=== PATIENT | male | born 1945 | race Caucasian/White ===

== ENCOUNTER 2016-05-26 14:02 | Emergency (ER) | payer MEDICARE, BC ==
[2016-05-26 15:01] VITALS: BP 94/64
[2016-05-26] MEDS ORDERED: Doxycycline (NF) 100 MG TAB PO ONE (15:52)
[2016-05-26] MEDS ORDERED: Acetaminophen TAB* 325 MG PO ONE (15:53)
[2016-05-26] MEDS ORDERED: DOXYcycline CAP(*) 100 MG ONE (15:59)
--- NOTE | 2016-05-26 16:34 | RAD ---
INDICATION: Right hand injury COMPARISON: None TECHNIQUE: AP, lateral, and oblique views were obtained. FINDINGS: There is no acute fracture. There is dorsal dislocation at the DIP joint of the fifth digit. There is interphalangeal joint space narrowing and there is moderate third MCP joint space narrowing consistent with osteoarthritis. IMPRESSION: DISLOCATION AT THE DIP JOINT OF THE FIFTH DIGIT. OSTEOARTHRITIS.
--- NOTE | 2016-05-26 16:35 | RAD ---
INDICATION: Dislocation at the DIP joint of the fifth digit COMPARISON: Right hand same date TECHNIQUE: AP, lateral, and oblique views were obtained. FINDINGS: There is dislocation at the DIP joint of the fifth digit. The distal falx is displaced dorsally. No underlying fracture is seen. There is soft tissue swelling.. IMPRESSION: DISLOCATION AT THE DIP JOINT OF THE RIGHT FIFTH DIGIT
--- NOTE | 2016-05-26 16:36 | RAD ---
INDICATION: Right knee injury. TECHNIQUE: 4 views of the right knee were obtained. FINDINGS: The bones are in normal alignment. No joint effusion or fracture is seen. Joint spaces appear maintained. IMPRESSION: NO EVIDENCE FOR FRACTURE.
--- NOTE | 2016-05-26 16:37 | RAD ---
INDICATION: Right shoulder injury COMPARISON: Right shoulder December 17, 2015 TECHNIQUE: Routine frontal and Y views were obtained. FINDINGS: There is no acute fracture or dislocation. There is moderate AC joint osteoarthritis. IMPRESSION: NO ACUTE BONY FINDINGS. AC JOINT OSTEOARTHRITIS
[2016-05-26] MEDS ORDERED: Lidocaine 2% PF * 5 ML VIAL ONE (16:45)
[2016-05-26] MEDS ORDERED: DOXYcycline CAP(*) 100 MG PO ONE (17:03)
--- NOTE | 2016-05-26 18:17 | RAD ---
Indication: Post reduction RIGHT fifth distal interphalangeal joint dislocation. Comparison: 1614 hours exam of the same date Technique: AP, lateral, and oblique views RIGHT fifth finger REPORT AND IMPRESSION: Restored anatomic alignment at the distal interphalangeal joint. No fracture evident. Soft tissue swelling most prominent distally.
--- NOTE | 2016-05-26 21:32 | UC ---
Bryon Patel Janilya, scribed for Siomara Bryant MD on 05/26/16 at 1536 . General HPI - HPI Summary HPI Summary: A 70 y/o male came in to [facility] presenting w/ a sudden onset of trauma that happened today approx 1400. Pt reports he stepped down the curb, slipped, and fell down on the right side of his body. Pt states he hurt his right shoulder, right arm, right hip, and right knee. In addition, he has a laceration on 5th finger of his right hand. Pt denies blacking out / denies LOC. Did not hit head. No abd c/os. No back pain. Denies hip pain No b/b issues. No vis / aud c/o's Denies new neck pain (hx arthritis). No new p/d/w. Does have a hx of periph neuropathy. Pt is able to ambulate now. PMHx neuropathy - legs and feet for years. Tetanus booster recently (less than 5 years). Pt is on xarelto for afib. - History of Current Complaint Chief Complaint: UCTrauma Stated Complaint: FELL-RT HAND KNEE PAIN Time Seen by Provider: 05/26/16 14:59 Hx Obtained From: Patient Onset/Duration: Sudden Onset, Lasting Hours, Still Present Timing: Constant Onset Severity: Moderate Current Severity: Moderate - Allergy/Home Medications Allergies/Adverse Reactions: Allergies Allergy/AdvReac Type Severity Reaction Status Date / Time Penicillins Allergy Unknown Unknown Verified 05/08/16 10:38 Reaction Details Sulfa Antibiotics Allergy Unknown Verified 05/08/16 10:38 Reaction Details bee stings Allergy Unknown Unknown Uncoded 05/08/16 10:38 Reaction Details PMH/Surg Hx/FS Hx/Imm Hx Previously Healthy: No - see hpi. Hx chronic VSU RLE medial calf approx 2 yrs ago. Occas dizzy. Endocrine History Of: Denies: Diabetes, Thyroid Disease Cardiovascular History Of: Reports: Cardiac Disorders - a-fib, Hypertension, Atrial Fibrillation Denies: Pacemaker/ICD Respiratory History Of: Reports: Asthma Denies: COPD GI/ History Of: Denies: Ulcer Psychological History Of: Reports: Depression - Surgical History Surgical History: Yes Surgery Procedure, Year, and Place: At age 14 - a piece of steel went into his eye and split his iris - has split vision in that eye- surgury to remove piece of metal from the eye.- 05/09/2007 ORBIT XRAYS COMPLETED AND CLEARED FOR MRI BY DR LEVIN. hernia repair many years ago - Family History Known Family History: Positive: Other - DM - mother and sister - Social History Alcohol Use: None Substance Use Type: None Smoking Status (MU): Former Smoker Type: Cigarettes Amount Used/How Often: Quit 2001 Length of Time of Smoking/Using Tobacco: 1/2 PPD for 20+ years Have You Smoked in the Last Year: No Review of Systems Constitutional: Negative Skin: Bruising - right shoulder, arm, elbow, hand, hip, and knee, Other - deep cut on 5th finger of right hand Eyes: Negative ENT: Negative Respiratory: Negative Cardiovascular: Negative Gastrointestinal: Negative Genitourinary: Negative Motor: Other - see hpi Neurovascular: Other - neuropathy - legs and feet Musculoskeletal: Arthralgia, Decreased ROM, Myalgia Neurological: Negative Psychological: Negative All Other Systems Reviewed And Are Negative: Yes Physical Exam Triage Information Reviewed: Yes Appearance: Well-Nourished - sitting up. conversing easily and appropriately. Able to ambulate, slowly. Vital Signs: Initial Vital Signs Temp 98.1 F 05/26/16 14:53 Pulse 74 05/26/16 14:53 Resp 18 05/26/16 14:53 BP 94/64 05/26/16 14:53 Pulse Ox 97 05/26/16 14:53 Vital Signs Reviewed: Yes Eye Exam: Normal ENT Exam: Normal Neck exam: Normal - no adenopathy appreciated supple for age. Neck: Positive: Supple - for age. + arthritic appearance. Respiratory Exam: Normal - no dyspnea, no tachypnea, normal respiratory rate Respiratory: Positive: Chest non-tender, Lungs clear, Normal breath sounds, No respiratory distress, No accessory muscle use Cardiovascular Exam: Other - irreg rhythm. Rate ok. correlates with left radial pulse. Cardiovascular: Positive: No Murmur, Pulses Normal, Brisk Capillary Refill Abdominal Exam: Normal Abdomen Description: Positive: Nontender, No Organomegaly, Soft Bowel Sounds: Positive: Present Musculoskeletal Exam: Other - Moves all 4 ext's including RUE. + right lat shoulder general discomfort, but FROM. Straightens elbow ok. R/u 2+ equal. Moves all 5 digits, but + def distal 5th dig. R knee + abrasion ant pat. Mild crepitus. Gait slow steady. Neurological Exam: Other - CN 2-12 intact, no c/o smell d/o. Moves all 4 ext ' s. See Gisell re details. BLE dec sens gross LT, c/w report chronic neuropathy. Psychological Exam: Normal - conversing easily and appropriately Skin Exam: Other - R ant finger pad # 5th dig lac. Full thickness. No deep exposed tendon or bone. CR distal < 2sec. + LT sens. Lac has some discoloration, c/w poor pefusion. As such, this was not suture. D/w pt. In order to preserve healing, lac dressed with surgicel will heal via 2ary intention. Diagnostics - Radiology Finger Xray Xray Interpretation: No Acute Changes Radiology Interpretation Completed By: Radiologist - IMPRESSION: DISLOCATION AT THE DIP JOINT OF THE RIGHT FIFTH DIGIT Hand Xray Xray Interpretation: No Acute Changes Radiology Interpretation Completed By: Radiologist - IMPRESSION: DISLOCATION AT THE DIP JOINT OF THE FIFTH DIGIT. OSTEOARTHRITIS. Knee Xray Xray Interpretation: No Acute Changes Radiology Interpretation Completed By: Radiologist - IMPRESSION: No evidence for fracture. Shoulder Xray Xray Interpretation: No Acute Changes Radiology Interpretation Completed By: Radiologist - IMPRESSION: NO ACUTE BONY FINDINGS. AC JOINT OSTEOARTHRITIS Course/Dx - Course Course Of Treatment: Considered diff Dx's below. Reviewed Xrays in meditech and w/ patient. xrays R shoulder, R knee, R hand, R 5th finger. Particularly noteworthy R 5th finger DIP dislocation. Dig block 2% Lido no epi, 1cc. Prem joint reduction w/o difficulty. Post reduction good alignment. Sling for shoulder as needed for comfort. R 5th finger volar pad lac - + edema and + dark discoloration at med margin of lac, concerning for possible dehiscence with poor perfusion. Also the swelling is to the degree that approximation will pull too much. D/w pt, he expresses understanding. All wounds cleansed and irrigated by RN. Surgicel applied, healing via secondary intention will be employed. Reviewed wound care instructions, avoidance of astringents. Keep dressing on until Sunday. Finger splint applied. After pt's departure, I spoke with Dr. Singleton via telephone re orthopedic f/u. During the course of [facility]] stay, Mr. Newell's R dorsal hand at approx distal 3rd MC developed swelling c/w hematoma approx 2cm. Ice, elevation encouraged. He will seek medical attention if worse / pain etc. Mr. Newell was given the opportunity to ask several insightful questions, to which I answered to the best of my ability. See avs instructions. Addm - per pt, tet utd. - Differential Dx - Multi-Symptom Provider Diagnoses: R 5th finger dislocation. Multiple contusions. R shoulder sprain. R knee contusion. R 5th finger lac (no suture) Discharge - Discharge Plan Condition: Stable Disposition: HOME Prescriptions: DOXYcycline CAP(*) [DOXYcycline 100MG CAP(*)] 100 mg PO BID #14 cap Patient Education Materials: Contusion in Adults (ED), Shoulder Sprain (ED), Finger Laceration (ED), Finger Dislocation (ED) Referrals: Maggie Willis MD [Primary Care Provider] - Additional Instructions: Follow up with your primary care physician, Dr. Willis, next week. Follow up with your orthopedic surgeon, Dr. Peter, early next week. Follow up here or with one of the above doctors on Sunday for dressing change and wound check and general checkover. Seek medical attention sooner for worse or new problems in the meantime. Ok to take acetaminophen as per packaging instructions as needed for pain. Elevate your hand as much as possible. Sling as needed for comfort. The documentation as recorded by the Bryon owen Janilya accurately reflects the service I personally performed and the decisions made by me, Siomara Bryant MD.
== END 2016-05-26 18:20 | disposition home or self-care (01) ==
LOC: UCEAST 14:02
DX: S43.401A Unspecified sprain of right shoulder joint, initial encounter (principal); S80.01XA Contusion of right knee, initial encounter; S40.011A Contusion of right shoulder, initial encounter; S50.01XA Contusion of right elbow, initial encounter; S60.221A Contusion of right hand, initial encounter; S70.01XA Contusion of right hip, initial encounter; S61.216A Laceration without foreign body of right little finger without damage to nail, initial encounter; S63.296A Dislocation of distal interphalangeal joint of right little finger, initial encounter; W17.89XA Other fall from one level to another, initial encounter; Y93.01 Activity, walking, marching and hiking; Y92.89 Other specified places as the place of occurrence of the external cause; Z88.0 Allergy status to penicillin; Z88.2 Allergy status to sulfonamides; Z87.891 Personal history of nicotine dependence
CPT/HCPCS: 26775; 73140; 99214; A9270-GY; G0463

== ENCOUNTER 2016-05-29 15:19 | Emergency (ER) | payer MEDICARE, BC ==
[2016-05-29 15:29] VITALS: BP 156/92
--- NOTE | 2016-05-29 16:08 | UC ---
HPI Wound/Suture Re-check - HPI Summary HPI Summary: Seen in UC 05/26/16 after fall from curb onto R side of body. Multiple contusions and strains, had DIP dislocation at R 5th finger, had R hand hematoma with significant swelling and bruising. Concerned about the amount of swelling in his hand, also hasn't changed bandages per Dr. Bryant's instructions. Saw Dr. Willis, but Dr. Willis sent him here because she was unsure how to deal with the surgicel. Denies streaking, fever, or new pain. - History Of Current Complaint Chief Complaint: UCWounds Stated Complaint: WOUND RECHECK Hx Obtained From: Patient Onset/Duration: Sudden Onset Severity: Moderate - Allergies/Home Medications Allergies/Adverse Reactions: Allergies Allergy/AdvReac Type Severity Reaction Status Date / Time Penicillins Allergy Unknown Unknown Verified 05/29/16 15:29 Reaction Details Sulfa Antibiotics Allergy Unknown Verified 05/29/16 15:29 Reaction Details bee stings Allergy Unknown Unknown Uncoded 05/08/16 10:38 Reaction Details Home Medications: Home Medications Acetaminophen 500 mg PO PRN 05/29/16 [History] Manganese Gluconate (Bulk) [Manganese Gluconate] 05/29/16 [History] Multiple Vitamins W/ Minerals [Multivitamin Adults] 1 tab PO DAILY 05/29/16 [ History Confirmed 05/29/16] PMH/Surg Hx/FS Hx/Imm Hx Endocrine History Of: Denies: Diabetes, Thyroid Disease Cardiovascular History Of: Reports: Cardiac Disorders - a-fib, Hypertension, Atrial Fibrillation Denies: Pacemaker/ICD Respiratory History Of: Reports: Asthma Denies: COPD GI/ History Of: Denies: Ulcer Psychological History Of: Reports: Depression - Surgical History Surgical History: Yes Surgery Procedure, Year, and Place: At age 14 - a piece of steel went into his eye and split his iris - has split vision in that eye- surgury to remove piece of metal from the eye.- 05/09/2007 ORBIT XRAYS COMPLETED AND CLEARED FOR MRI BY DR LEVIN. hernia repair many years ago - Family History Known Family History: Positive: Other - DM - mother and sister - Social History Alcohol Use: Rare Substance Use Type: None Smoking Status (MU): Former Smoker Type: Cigarettes Amount Used/How Often: Quit 2001 Length of Time of Smoking/Using Tobacco: 1/2 PPD for 20+ years Have You Smoked in the Last Year: No Review of Systems Constitutional: Negative Skin: Bruising, Other - abrasions and skin avulsions Eyes: Negative ENT: Negative Respiratory: Negative Cardiovascular: Negative Gastrointestinal: Negative Genitourinary: Negative Motor: Negative Neurovascular: Negative Musculoskeletal: Decreased ROM - R hand Neurological: Negative Psychological: Negative All Other Systems Reviewed And Are Negative: Yes Physical Exam Triage Information Reviewed: Yes Appearance: Obese Vital Signs: Initial Vital Signs Temp 97.7 F 05/29/16 15:25 Pulse 63 05/29/16 15:25 Resp 18 05/29/16 15:25 BP 156/92 05/29/16 15:25 Pulse Ox 99 05/29/16 15:25 Vital Signs Reviewed: Yes Eye Exam: Other - L eye post-surgical changes Eyes: Positive: Conjunctiva Clear ENT Exam: Normal ENT: Positive: Normal ENT inspection, Hearing grossly normal, Pharynx normal Dental Exam: Normal Neck exam: Normal Neck: Positive: Supple, Nontender, No Lymphadenopathy Respiratory Exam: Normal Respiratory: Positive: Chest non-tender, Lungs clear, Normal breath sounds, No respiratory distress, No accessory muscle use Cardiovascular Exam: Normal Cardiovascular: Positive: RRR, No Murmur Musculoskeletal: Positive: ROM Limited @ - R hand, Edema @ - R hand with marked swelling and bruising Neurological Exam: Normal Psychological Exam: Normal Skin Exam: Other - skin avulsions to R 5th with surgicel intact. After soaking off, scabs intact, no erythema Course/Dx - Differential Dx - Laceration/Wound Provider Diagnoses: R hand healing abrasions. R hand healing skin avulsions. R hand hematoma Discharge - Discharge Plan Condition: Stable Disposition: HOME Patient Education Materials: Skin Avulsion (ED), Hematoma (ED) Referrals: Maggie Willis MD [Primary Care Provider] - If Needed Additional Instructions: As we discussed, the swelling and discoloration in your hand is expected from the contusion you experienced. If you develop redness, foul drainage, or streaking up the arm please come back right away. You can shower and wash your hands as normal. Make sure you change your bandages at least once daily, and if they ever get wet or soiled.
== END 2016-05-29 16:25 | disposition home or self-care (01) ==
LOC: UCEAST 15:19
DX: S60.511D Abrasion of right hand, subsequent encounter (principal); S60.221D Contusion of right hand, subsequent encounter; S61.411D Laceration without foreign body of right hand, subsequent encounter; W17.89XD Other fall from one level to another, subsequent encounter; Z88.0 Allergy status to penicillin; Z88.2 Allergy status to sulfonamides; Z87.891 Personal history of nicotine dependence
CPT/HCPCS: 99212; G0463

== ENCOUNTER 2017-10-12 11:05 | Inpatient (IN) | payer MEDICARE, BC ==
[2017-10-12] MEDS ORDERED: Morphine INJ* 4 MG/ML 1 ML CARPUJECT IV ONE ×3 (11:18→12:59)
[2017-10-12] MEDS ORDERED: NS 0.9% 1000 ML* 1,000 ML IV ONE (11:18)
[2017-10-12] MEDS ORDERED: Morphine VIAL* 4 MG/ML VIAL (1 ml vial) IV ONE ×3 (11:29→14:00)
[2017-10-12] MEDS ORDERED: Ondansetron ODT TAB* 4 MG ONE ×2 (11:37→16:39)
[2017-10-12] MEDS: Ondansetron ODT TAB* 4 MG SL PRN ×2 (11:42→16:40)
[2017-10-12 11:51] LABS: ABS Basophils 0.1 10^3/ul (0-0.2); ABS Eosinophils 0 10^3/ul (0-0.6); ABS Lymphocytes 1.2 10^3/ul (1.0-4.8); ABS Monocytes 0.6 10^3/ul (0-0.8); ABS Neutrophils 9.1 10^3/ul (1.5-7.7); ABS Nucleated RBC 0 10^3/ul; Eosinophil % 0.3 % (0-6); Hematocrit 47 % (42-52); Hemoglobin 16.3 g/dl (14.0-18.0); Lymphocyte % 10.7 % (25-47); Mean Corpuscular HGB Conc 34 g/dl (31-36); Mean Corpuscular Hemoglobin 34 pg (27-31); Mean Corpuscular Volume 99 fL (80-94); Mean Platelet Volume 8.2 um3 (7.4-10.4); Nucleated Red Blood Cells % 0.1; Platelet Count 267 10^3/ul (150-450); Red Blood Count 4.81 10^6/ul (4.0-5.4); Red Cell Distribution Width 12 % (10.5-15); White Blood Count 11.1 10^3/ul (3.5-10.8)
[2017-10-12 12:09] LABS: EGFR Non-African American 60.3 (>60)
[2017-10-12] MEDS ORDERED: Iohexol 300* (CONTRAST) 10 ML SDV IV ONE (12:30)
--- OUTSIDE RECORDS SUMMARY | 2017-10-12 12:32 | XMS REPORT ---
:1945 External Reference #:[id number] Author Organization [email or web address] Address [address] [place] [address] Phone [phone] Care Team Providers Name Role Phone Maggie Willis M.D. Primary Care Physician Unavailable Payers Type Date Identification Numbers Payment Provider Subscriber Medicare Primary Policy Number: [id number] Medicare - NGS Nabil Newell PayID: [id number] [place] [address] Medigap Part B Effective: Policy Number: BS [place] [employer] Nabil J Luis Newell 1999 [id number] PayID: [id number] [address] [address] [place] [address] Problems Date Description Provider Status Onset: Atrial fibrillation Active Onset: Chronic obstructive lung disease Active Onset: Essential hypertension Active Onset: Hereditary hemochromatosis Active Onset: Sleep apnea Active Onset: Gout Active Onset: Seasonal allergy Active Onset: 10/01/2014 Aphakia Jung Kaiser M.D. Active Onset: 10/01/2014 Exotropia Jung Kaiser M.D. Active Onset: 10/01/2014 Hypertropia Jung Kaiser M.D. Active Onset: 10/01/2014 Migraine with aura Jung Kaiser M.D. Active Onset: Large prostate Active Onset: 10/01/2015 Nuclear senile cataract Yasmine Patrick O.D. Active Onset: 10/01/2015 Monocular exotropia Yasmine Patrick O.D. 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 Social History Type Date Description Comments Marital Status Legal Status: Occupation [employer] Work Status Retired ETOH Use Denies alcohol use Smoking Patient is a former smoker Recreational Drug Use Denies Drug Use Daily Caffeine coffee 1 cup weekly Allergies, Adverse Reactions, Alerts Date Description Reaction Status Severity Comments 10/01/2014 Penicillin does not remember active 10/01/2014 Sulfa Antibiotics Nausea and Vomiting active Medications Medication Date Status Form Strength Qnty SIG Indications Ordering Provider Losartan Active Tablets 25mg 1 by Unknown Potassium 000 mouth every day Allopurinol Active Tablets 100mg 1 by Unknown 000 mouth every day Ranitidine HCL Active Capsules 300mg 1 by Unknown 000 mouth every day Vitamin B-12 Active Tablets 1000mcg 1 by Unknown 000 mouth every day Colchicine Active Tablets 0.6mg 1 by Unknown 000 mouth every day as needed Pravastatin Active Tablets 20mg 1 by Unknown Sodium 000 mouth every evening Metoprolol Active Tablets ER 50mg 2 by Unknown Succinate ER 000 24HR mouth every morning then 1 tab po qpm Alvesco Active Aerosol 160mcg/Act 2 puffs Unknown 000 every day Xopenex HFA Active Aerosol 45mcg/Act 2 puffs Unknown 000 four times a day as needed Xarelto Active Tablets 20mg 1 by Unknown 000 mouth every day Loperamide HCL 0 Active Capsules 2mg Unknown 000 Tamsulosin HCL Active Capsules 0.4mg Unknown 000 Multivitamin Active Tablets Unknown Adult 000 Magnesium Active Tablets 400mg tid Unknown 000 Results Description No Information Procedures Date CPT Code Description Status 10/04/2016 32068 Determination Of Refractive State Completed 10/04/2016 57005 Est Patient Comprehensive Exam Completed 10/01/2015 90614 Est Patient Comprehensive Exam Completed 10/01/2014 30078 Determination Of Refractive State Completed 10/01/2014 29929 Est Patient Comprehensive Exam Completed 09/30/2013 88813 Est Patient Comprehensive Exam Completed 09/25/2012 41745 Determination Of Refractive State Completed 09/25/2012 12514 Est Patient Comprehensive Exam Completed 09/12/2011 71907 Est Patient Comprehensive Exam Completed 09/12/2011 82219 Determination Of Refractive State Completed 09/06/2010 79759 Determination Of Refractive State Completed 09/06/2010 51969 Est Patient Comprehensive Exam Completed 08/31/2009 92280 Determination Of Refractive State Completed 08/31/2009 82936 Est Patient Comprehensive Exam Completed 08/27/2008 00554 Est Patient Comprehensive Exam Completed 08/15/2007 75939 Determination Of Refractive State Completed 08/15/2007 53242 Est Patient Comprehensive Exam Completed 09/04/2006 21333 Determination Of Refractive State Completed 09/04/2006 54905 New Patient Comprehensive Exam Completed Plan of Care 10/10/2017 - Yasmine Patrick O.D.H25.811 Combined forms of age-related cataract, right eyeComments:Smoking can increase the risk of developing or worsening any eye related disease, as well as affect your overall health. If you are a smoker, we strongly recommend that you quit.If you are not a smoker, we strongly recommend that you do not start. You have been diagnosed with a cataract in the righteye. If you are happy with your vision as it is, we will see you at your next scheduled appointment.If you feel like your vision is getting worse before your scheduled appointment, please call Marah Dinh at [phone].Follow up:1 Year Follow Up You can expect to have your eyes dilated at your next visit. If Dr. Patrick orders any additional testing, it may require extra time. We recommend that you bring sunglasses, as dilation drops often make you light sensitive until they wear off. We always recommend you bring someone to drive you home if you are uncomfortable driving with your eyes dilated. If you have any questions before your next visit, feel free to call our office at .H27.02 Aphakia, left eyeH50.112 Monocular exotropia, left eye
--- NOTE | 2017-10-12 13:22 | RAD ---
CLINICAL HISTORY: LOWER ABD PAIN/TENDERNESS COMPARISON: None TECHNIQUE: Multiple contiguous axial CT scans were obtained of the abdomen and pelvis after the administration of intravenous contrast. Coronal and sagittal multiplanar reformations are submitted for review. Oral contrast was administered. Delayed images were obtained through the abdomen. FINDINGS: LUNG BASES: The lung bases are clear. LIVER: The liver is diffusely low in attenuation compared to the spleen. There are no focal hepatic parenchymal masses. BILE DUCTS: There is no intrahepatic or extrahepatic biliary dilatation. GALLBLADDER: The gallbladder is normal, without pericholecystic inflammatory change. PANCREAS: The pancreas is normal, without mass or ductal dilatation. SPLEEN: Normal in size and appearance. UPPER GI TRACT: Evaluation of the gastrointestinal tract is limited by incomplete gastric distention. The upper GI tract is unremarkable. SMALL BOWEL AND MESENTERY: The small bowel is normal in contour, course, and caliber. There is no obstruction or dilatation. COLON: There are multiple diverticula of the sigmoid colon. There is no pericolonic inflammatory change. ADRENALS: Normal bilaterally. KIDNEYS: There is a 0.3 cm nonobstructing calyceal stone of the lower pole of left kidney. There is a 0.3 cm calculus of the distal third of the left ureter. There is mild pelvocaliectasis and hydroureter. There is stranding of the perinephric fat. BLADDER: The bladder is smooth in contour. PELVIC ORGANS: The prostate is diffusely enlarged. The seminal vesicles are symmetric. AORTA: There is calcific atherosclerotic disease of the abdominal aorta and its branches, without aneurysmal dilatation IVC: Unremarkable LYMPH NODES: There is no lymphadenopathy by size criteria. ABDOMINAL WALL: There is no evidence for abdominal wall hernia. BONES AND SOFT TISSUES: There is a chronic appearing compression deformity of T10. Mild degenerative changes are noted. OTHER: None IMPRESSION: 1. LEFT NEPHROLITHIASIS INCLUDING A 0.3 CM DISTAL LEFT URETERAL STONE WITH MILD HYDRONEPHROSIS. 2. FATTY INFILTRATION OF THE LIVER. 3. ATHEROSCLEROSIS. 4. DIVERTICULOSIS. 5. ENLARGED PROSTATE
[2017-10-12] MEDS ORDERED: Ketorolac INJ* 30 MG/ML 1 ML VIAL IV PUSH ONE (13:57)
[2017-10-12] MEDS ORDERED: Metoclopramide IV* 5 MG/ML 2 ML VIAL IV SLOW PU ONE (14:09)
[2017-10-12] MEDS ORDERED: oxyCODONE/Acetamin 5/325 MG* TAB PO ONE (14:52)
[2017-10-12] MEDS ORDERED: Aspirin 81 mg CHEW TAB* 81 MG TAB.CHEW PO ONE (17:55)
[2017-10-12] MEDS ORDERED: Nitroglycerin TAB 0.4 MG* 0.4 MG TAB SL ONE (17:56)
[2017-10-12] MEDS: NS 0.9% 1000 ML* 2,000 ML IV ONE ×2 (18:07→18:32)
[2017-10-12] MEDS ORDERED: Diltiazem IV* 5 MG/ML 5 ML VIAL (for loading dose/IV Push) (25 MG) IV SLOW PU ONE (18:17)
--- NOTE | 2017-10-12 18:54 | ED ---
García Patel Stephanie, scribed for Barber Villalpando MD on 10/12/17 at 1131 . Abdominal Pain/Male - HPI Summary HPI Summary: The pt is a 72 y/o M BIBA to the ED with c/o abd pain that began at 08:00 this morning. Symptoms diarrhea (yesterday). His abd pain is located in the LLQ and radiated into the flank circumferentially. He denies N/V and blood in the stool. He denies hx of kidney stones. He reports his last time eating was last night. - History of Current Complaint Chief Complaint: EDAbdPain Stated Complaint: ABD PAIN Time Seen by Provider: 10/12/17 11:12 Hx Obtained From: Patient Onset/Duration: Sudden Onset, Still Present Timing: Constant Severity Currently: Severe Pain Intensity: 10 Pain Scale Used: 0-10 Numeric Location: Discrete At: LLQ Radiates: Yes Radiates to: Flank - L Alleviating Factor(s): Position Associated Signs And Symptoms: Positive: Diarrhea. Negative: Blood in Stool, Nausea, Vomiting - Allergies/Home Medications Allergies/Adverse Reactions: Allergies Allergy/AdvReac Type Severity Reaction Status Date / Time bee venom protein (honey bee) Allergy Unknown Unknown Verified 10/12/17 12:30 Reaction Details Penicillins Allergy Unknown See Comment Verified 10/12/17 12:30 Sulfa (Sulfonamide Allergy Unknown See Comment Verified 10/12/17 12:30 Antibiotics) Home Medications: Home Medications Ciclesonide 160 MG MDI (NF) [Alvesco 160 MDI (NF)] 1 puff INH BID 10/12/17 [ History Confirmed 10/12/17] Cyanocobalamin TAB* [Vitamin B12 TAB*] 1,000 mcg PO DAILY 10/12/17 [History Confirmed 10/12/17] Loperamide CAP* [Imodium CAP*] 2 mg PO DAILY 10/12/17 [History Confirmed ] Losartan TAB* [Cozaar TAB*] 25 mg PO DAILY 10/12/17 [History Confirmed 10/12/17] Manganese Gluconate 400 mg PO QPM 10/12/17 [History Confirmed 10/12/17] Manganese Gluconate 800 mg PO QAM 10/12/17 [History Confirmed 10/12/17] Metoprolol Tartrate TAB* [Lopressor TAB*] 50 mg PO QPM 10/12/17 [History Confirmed 10/12/17] Metoprolol Tartrate TAB* [Lopressor TAB*] 100 mg PO QAM 10/12/17 [History Confirmed 10/12/17] Multivitamins/Minerals TAB* [Theragran/minerals TAB*] 1 tab PO DAILY 10/12/17 [ History Confirmed 10/12/17] Pravastatin (NF) [Pravachol (NF)] 20 mg PO QPM 10/12/17 [History Confirmed 10/12] Ranitidine TAB (NF) [Zantac TAB (NF)] 300 mg PO DAILY 10/12/17 [History Confirmed 10/12/17] Rivaroxaban TAB(*) [Xarelto 10 mg (*)] 20 mg PO DAILY 10/12/17 [History Confirmed 10/12/17] Tamsulosin CAP* [Flomax CAP*] 0.4 mg PO DAILY 10/12/17 [History Confirmed ] PMH/Surg Hx/FS Hx/Imm Hx Endocrine/Hematology History: Reports: Hx Blood Disorders - hemochromatosis Denies: Hx Diabetes, Hx Thyroid Disease Cardiovascular History: Reports: Hx Hypercholesterolemia, Hx Hypertension Denies: Hx Pacemaker/ICD Respiratory History: Reports: Hx Asthma, Hx Seasonal Allergies, Hx Sleep Apnea - severe BRIT; current CPAP user Denies: Hx Chronic Obstructive Pulmonary Disease (COPD) GI History: Reports: Hx Gastroesophageal Reflux Disease Denies: Hx Ulcer Sensory History: Denies: Hx Legally Blind, Hx Hearing Aid EENT History: Denies: Hx Deafness Psychiatric History: Reports: Hx Depression Denies: Hx Panic Disorder - Surgical History Surgery Procedure, Year, and Place: At age 14 - a piece of steel went into his eye and split his iris - has split vision in that eye- surgury to remove piece of metal from the eye.- 05/09/2007 ORBIT XRAYS COMPLETED AND CLEARED FOR MRI BY DR LEVIN. hernia repair many years ago Infectious Disease History: No Infectious Disease History: Denies: Hx Clostridium Difficile, Hx Hepatitis, Hx Human Immunodeficiency Virus (HIV), Hx of Known/Suspected MRSA, Hx Shingles, Hx Tuberculosis, Hx Known/ Suspected VRE, Hx Known/Suspected VRSA, History Other Infectious Disease, Traveled Outside the [place] in Last 30 Days - Family History Known Family History: Positive: Other - DM - mother and sister - Social History Occupation: Retired Lives: Dormitory/Roommates Alcohol Use: Rare Hx Substance Use: No Substance Use Type: Reports: None Hx Tobacco Use: No Smoking Status (MU): Former Smoker Type: Cigarettes Amount Used/How Often: Quit 2001 Length of Time of Smoking/Using Tobacco: 1/2 PPD for 20+ years Have You Smoked in the Last Year: No Review of Systems Negative: Fever, Chills Negative: Erythema Negative: Sore Throat Negative: Chest Pain Negative: Shortness Of Breath, Cough Gastrointestinal: Negative - blood in stool Positive: Abdominal Pain, Diarrhea. Negative: Vomiting, Nausea Positive: flank pain. Negative: dysuria, hematuria Negative: Myalgia, Edema Negative: Rash Neurological: Negative - dizziness All Other Systems Reviewed And Are Negative: Yes Physical Exam - Summary Physical Exam Summary: Constitutional: Well-developed, Well-nourished, Alert. (-) Distressed Skin: Warm, Dry HENT: Normocephalic; Atraumatic Eyes: Conjunctiva normal Neck: Musculoskeletal ROM normal neck. (-) JVD, (-) Stridor, (-) Tracheal deviation Cardio: Rhythm regular, rate normal, Heart sounds normal; Intact distal pulses; The pedal pulses are 2+ and symmetric. Radial pulses are 2+ and symmetric. (-) Murmur Pulmonary/Chest wall: Effort normal. (-) Respiratory distress, (-) Wheezes, (-) Rales Abd: Soft, (-) Distension, diffuse abd tenderness worse in lower abdomen, guarding and rebound tenderness Musculoskeletal: (-) Edema Lymph: (-) Cervical adenopathy Neuro: Alert, Oriented x3 Psych: Mood and affect Normal Triage Information Reviewed: Yes Vital Signs On Initial Exam: Initial Vitals Temp Pulse Resp BP Pulse Ox 96.7 F 86 25 136/97 98 10/12/17 11:09 10/12/17 11:09 10/12/17 11:09 10/12/17 11:09 10/12/17 11:09 Vital Signs Reviewed: Yes Diagnostics - Vital Signs Vital Signs Temp Pulse Resp BP Pulse Ox 10/12/17 11:09 96.7 F 86 25 136/97 98 - Laboratory Result Diagrams: 10/12/17 11:43 10/12/17 11:43 Lab Statement: Any lab studies that have been ordered have been reviewed, and results considered in the medical decision making process. - CT Abdomen/Pelvis CT Interpretation: Positive (See Comments) CT Interpretation Completed By: Radiologist - 1. LEFT NEPHROLITHIASIS INCLUDING A 0.3 CM DISTAL LEFT URETERAL STONE WITH MILD HYDRONEPHROSIS. 2. FATTY INFILTRATION OF THE LIVER. 3. ATHEROSCLEROSIS. 4. DIVERTICULOSIS. 5. ENLARGED PROSTATE ED physician has reviewed this report. - EKG 17:58 Cardiac Rate: NL - 97 BPM EKG Rhythm: Atrial Fibrillation EKG Interpretation: no STEMI Re-Evaluation - Re-Evaluation First Eval Re-Evaluation Time: 14:10 Change: Unchanged - ED physician updated the pt on his results. The pt just vomited a small amount. He reports having 4 out of 10 pain. Second Eval Re-Evaluation Time: 16:38 Change: Unchanged - The pt has just vomited and is tachycardic. Third Eval Re-Evaluation Time: 17:59 Change: Worse - The pt is now reporting he is experiencing substernal chest pressure that is radiating up into the throat. He reports he is still having abd pain. Fourth Eval Re-Evaluation Time: 18:19 Change: Worse - The pt is diaphoretic in rapid a-fib with a heart rate of 160. Abdominal Pain Fem Course/Dx - Course Course Of Treatment: At 18:12, ED physician spoke with Dr. Bruno who said he will see the pt in the hospital for urologic concerns if the hospitalist thinks it necessary. - Diagnoses Provider Diagnoses: Ureteral stone, Atrial fibrillation with rapid ventricular response - Provider Notifications Discussed Care Of Patient With: Dion Smith Time Discussed With Above Provider: 18:30 Instructed by Provider To: Admit As Inpatient - Critical Care Time Critical Care Time: 30-74 min - 45 min Discharge - Sign-Out/Discharge Documenting (check all that apply): Discharge/Admit/Transfer - Admit - Discharge Plan Condition: Stable Disposition: ADMITTED TO [facility] Referrals: Maggie Willis MD [Primary Care Provider] - The documentation as recorded by the García owen Stephanie accurately reflects the service I personally performed and the decisions made by , Barber Villalpando MD.
[2017-10-12] MEDS ORDERED: PROCHLORPERAZINE INJ 5 MG/ML 2 ML VIAL IV ONE (18:55)
[2017-10-12] MEDS ORDERED: Pantoprazole IV* 40 MG IV ONE (19:17)
[2017-10-12] MEDS ORDERED: Acetaminophen TAB* 325 MG PO PRN (19:42)
[2017-10-12] MEDS ORDERED: oxyCODONE/Acetamin 5/325 MG* TAB PO PRN (19:42)
[2017-10-12] MEDS ORDERED: Ondansetron 40 MG VIAL* 2 MG/ML 20 ML VIAL IV PRN (19:42)
[2017-10-12] MEDS ORDERED: Al Hydrox/Mg Hydrox/Simet LIQ* 30 ML UDC PO PRN (20:29)
[2017-10-12] MEDS ORDERED: Magnesium Sulfate 2 GM IV* 2 GM/50 ML BAG IVPB ONE (20:34)
[2017-10-12] MEDS ORDERED: Metoprolol Tartrate TAB* 50 mg PO SCH (21:00)
[2017-10-12] MEDS: Metoprolol Tartrate TAB* 50 mg PO SCH (21:27)
[2017-10-12] MEDS: NS 0.9% 1000 ML* 1,000 ML IV SCH (21:27)
[2017-10-12] MEDS: Mometasone 220 MCG MDI INH SCH (21:57)
--- NOTE | 2017-10-13 04:01 | HP ---
CC: Dr. Maggie Willis * HISTORY AND PHYSICAL: DATE OF ADMISSION: 10/12/17 PRIMARY CARE PROVIDER: Dr. Maggie Willis. PRIMARY TALENT ACQUISITION ADMINISTRATOR: Dr. Luis Ron. ATTENDING PHYSICIAN: Dr. Esvin Wallace * (dictated by Joselin Avendano NP). CHIEF COMPLAINT: Abdominal pain. HISTORY OF PRESENT ILLNESS: Mr. Newell is a 72-year-old male with past medical history significant for atrial fibrillation, hypertension, benign neoplasm of the stomach, COPD, obstructive sleep apnea, GERD, gout, hemochromatosis, and obesity, who states that over the last few days, he has had intermittent abdominal pain that developed into constant lower abdominal pain radiating into his back. He denies any fevers, chills, cough or shortness of breath. He reports nausea today. He denies diarrhea. He reports epigastric discomfort, that he describes as similar to indigestion. He denies any urinary symptoms such as urgency, dysuria, or increased frequency. He denies any history of previous kidney stones. Due to his abdominal pain, he presented to the emergency room for further evaluation of his symptoms. While in the emergency room, the patient had an abdomen CT showing a left hydronephrosis with a 0.3 cm distal left ureteral stone. During his stay, he was found to have an increasing heart rate with a heart rate up into the 140s. He had a troponin of 0.00. He received a push of IV diltiazem, which slowed his heart rate down into the 70s. The patient has a known history of atrial fibrillation. He is unsure if he is always in AFib or if he goes in and out. He denies any palpitations or chest pain. The patient received Zofran, aspirin , Toradol, Reglan, morphine, nitro, and Percocet while in the emergency room. Additionally, he received 2 L of fluid. Due to the patient's atrial fibrillation, the Hospitalists were asked to evaluate the patient for admission. PAST MEDICAL HISTORY: 1. Atrial fibrillation. 2. Hypertension. 3. Benign neoplasm of the stomach. 4. COPD. 5. Obstructive sleep apnea, uses CPAP. 6. GERD. 7. Gout. 8. Hemochromatosis. PAST SURGICAL HISTORY: 1. Status post umbilical hernia repair. 2. Status post eye surgery. HOME MEDICATIONS: Include: 1. Flomax 0.4 mg oral daily. 2. Pravachol 20 mg oral every evening. 3. Lopressor 100 mg oral every morning and 50 mg oral every night. 4. Manganese 800 mg oral every morning and 400 mg oral every evening. 5. Vitamin B12 1000 mcg oral daily. 6. Ranitidine 300 mg oral daily. 7. Multivitamin 1 tablet oral daily. 8. Losartan 25 mg oral daily. 9. Imodium 2 mg oral daily. 10. Xarelto 20 mg oral daily. 11. Allopurinol 100 mg oral daily. 12. Xopenex HFA 1 puff inhalation every 6 hours as needed for shortness of breath or wheeze. 13. Alvesco 160 mcg 1 puff inhalation twice daily. 14. Colchicine 0.6 mg oral twice daily as needed for gout flare. ALLERGIES: BEES, PENICILLIN, and SULFA. FAMILY HISTORY: The patient's father had a history of coronary artery disease. He has a mother and a sister with a history of diabetes and a sister with the history of cancer. SOCIAL HISTORY: The patient is a former smoker. He did have a history of smoking half a pack a day for 20 plus years and quit smoking in 2001. He denies recreational drug use. He denies alcohol use. His friend, [place], will be his surrogate decision maker in the event he is unable to make decisions for himself. REVIEW OF SYSTEMS: I performed an 11-point review of systems. All the pertinent positives and negatives are mentioned in the history of present illness. The remaining review of systems is negative PHYSICAL EXAMINATION GENERAL APPEARANCE: The patient is alert, pleasant, appears to be in no acute distress. VITAL SIGNS: Temperature 96.7, heart rate 91, respiratory rate 16, O2 sat 94% on room air, blood pressure 121/72. HEENT: Normocephalic, atraumatic. Pupils are equal and reactive to light. Extraocular movements are intact. NECK: Supple. RESPIRATORY: There is no accessory muscle use. Lungs are clear to auscultation bilateral. CARDIOVASCULAR: Irregular rate and rhythm. S1, S2 present. There are no murmurs, rubs or gallops heard. ABDOMEN: Large, soft, nontender, nondistended. Bowel sounds are present x4. No CVA tenderness bilaterally. The patient has mild tenderness to the left lower quadrant. EXTREMITIES: There is no lower extremity edema. DP and PT pulses are 1+ and symmetric. MUSCULOSKELETAL: There is no clubbing or cyanosis noted. The patient exhibits good strength in all extremities. NEUROLOGICAL: The patient is alert and oriented x4. Cranial nerves II through XII are grossly intact. PSYCHOLOGICAL: The patient is calm and cooperative. SKIN: There are no rashes or abnormalities seen. DIAGNOSTIC STUDIES/LABORATORY DATA: Sodium 138, potassium 4.1, chloride 104, CO2 24, BUN 21, creatinine 1.19, glucose 155. White blood cell count 11.1, hemoglobin 16.3, hematocrit 47, platelet count 267. Lactic acid 2.2, troponin 0.00. EKG shows an atrial fibrillation, rate of 97. No acute signs of ischemia. This is similar to previous from 08/05/10. Abdomen and pelvis CT from today. Radiologist's impression: Left nephrolithiasis including a 0.3 cm distal left ureteral stone with mild hydronephrosis. Fatty infiltration of the liver. Atherosclerosis. Diverticulosis. Enlarged prostate. IMPRESSION: Mr. Newell is a 72-year-old male with a past medical history significant for atrial fibrillation, hypertension, chronic obstructive pulmonary disease, obstructive sleep apnea, gastroesophageal reflux disease, gout, hemochromatosis, who presents to the emergency room with complaints of abdominal pain, was found to have left nephrolithiasis with a left ureteral stone and mild hydronephrosis and atrial fibrillation with RVR. He will be admitted as an observation for atrial fibrillation with RVR and renal calculi. 1. Atrial fibrillation with RVR. The patient states that he has been taking his metoprolol and Xarelto as directed. He states he has not been on digoxin for at least a year. Currently, after receiving IV diltiazem bolus in the emergency room, his heart rate is controlled into the 70s to 80s. I am going to hold on further diltiazem and placed the patient back on his home metoprolol. We can give more IV diltiazem and consider starting a diltiazem drip if he goes back into atrial fibrillation with RVR. The patient will be continued on his home Xarelto. Due to the Afib with RVR, I will also trend his troponin and monitor on telemetry. 2. Left nephrolithiasis with left ureteral stone and mild hydronephrosis. Dr. Bruno is aware of the patient being admitted. We will give him IV fluids overnight and strain his urine. We will call Dr. Bruno in the morning if it appears that the patient may possibly need a surgical intervention. He will be continued on the Flomax he is already on. 3. Elevated lactic acid. I suspect this is secondary to dehydration. We will give IVFs and recheck a lactic acid 4. Hypomagnesium. We will give replacement and recheck in the morning. 5. Hypertension. The patient was initially normotensive in the emergency room , but was hypotensive after receiving the IV diltiazem. He will continue his Lopressor with hold parameters. Overnight, I am going to hold his losartan to make sure that his blood pressure has improved and he can be resumed on his losartan in the morning if his blood pressure has improved. 6. Chronic obstructive pulmonary disease. The patient has no signs of an acute chronic obstructive pulmonary disease exacerbation at this time. He will be continued on his home inhaled medications. 7. Obstructive sleep apnea. The patient will be continued on CPAP. 8. Gastroesophageal reflux disease. The patient is complaining of some indigestion. He received Protonix in the emergency room. He will be continued on his home ranitidine or hospital equivalent. I will also order him Mylanta as needed to see if this helps with his epigastric discomfort. 9. Gout. Continued usual home allopurinol. He has no signs of a gout flare- up at this time. 10. Obesity. BMI 37. Fluids, electrolytes, and nutrition. The patient will be on a heart healthy diet. 11. Code status. Full code. 12. DVT prophylaxis. He is a high risk. He will be continued on Xarelto. 13. Disposition. Observation. TIME SPENT: Time for this admission was approximately 60 minutes, greater than half of that was spent with the patient discussing medications, past medical history, and the events leading up to his arrival today, performing a physical examination. The case has been reviewed with the attending, Dr. Wallace, who agrees with the plan of care. Reviewed by KOKO IBARRA 10/15/17 1053 [id number]/[facility] #: [id number] NUVIA
[2017-10-13] MEDS: NS 0.9% 1000 ML* 1,000 ML IV SCH (04:50)
[2017-10-13 05:44] LABS: EGFR Non-African American 53.5 (>60)
[2017-10-13] MEDS: Famotidine TAB* 20 MG PO SCH (09:18)
[2017-10-13] MEDS: Rivaroxaban TAB(*) 20 MG TAB PO SCH (09:19)
[2017-10-13] MEDS: Cyanocobalamin TAB* 500 MCG PO SCH (09:19)
[2017-10-13] MEDS: Multivitamins/Minerals TAB PO SCH (09:19)
[2017-10-13] MEDS: Tamsulosin CAP* 0.4 MG PO SCH (09:19)
[2017-10-13] MEDS: Metoprolol Tartrate TAB* 100 MG TAB PO SCH (09:19)
[2017-10-13] MEDS: Allopurinol TAB* 100 MG PO SCH (09:19)
[2017-10-13 09:29] LABS: Urine Appearance Clear; Urine Blood 2+ (Negative); Urine Color Yellow; Urine Ketones Negative (Negative); Urine Protein Negative (Negative); Urine Specific Gravity 1.029 (1.010-1.030); Urine Urobilinogen Negative (Negative)
--- NOTE | 2017-10-13 15:03 | PN ---
Subjective Date of Service: 10/13/17 Interval History: C/o mild soreness to left lower abd, states that it is much improved since yesterday. reports some lightheadedness this AM and mild nausea that has subsided. Currently denies n/v/d. Denies chest pain or shortness of breath. denies pain or difficulty urinating. Family History: Unchanged from Admission Social History: Unchanged from Admission Past Medical History: Unchanged from Admission Objective Active Medications: Acetaminophen (Tylenol Tab*) 650 mg PO Q4H PRN PRN Reason: FEVER/PAIN Al Hydrox/Mg Hydrox/Simethicone (Maalox Plus*) 30 ml PO Q4H PRN PRN Reason: INDIGESTION Allopurinol (Zyloprim Tab*) 100 mg PO DAILY [facility] Last Admin: 10/13/17 09:19 Dose: 100 mg Cyanocobalamin (Vitamin B12 Tab*) 1,000 mcg PO DAILY [facility] Last Admin: 10/13/17 09:19 Dose: 1,000 mcg Famotidine (Pepcid Tab*) 40 mg PO DAILY [facility] PRN Reason: Protocol Last Admin: 10/13/17 09:18 Dose: 40 mg Sodium Chloride (Ns 0.9% 1000 Ml*) 1,000 mls @ 150 mls/hr IV PER RATE [facility] Last Admin: 10/13/17 04:50 Dose: 150 mls/hr Metoprolol Tartrate (Lopressor Tab*) 100 mg PO QAM [facility] Last Admin: 10/13/17 09:19 Dose: 100 mg Metoprolol Tartrate (Lopressor Tab*) 50 mg PO BEDTIME [facility] Last Admin: 10/12/17 21:27 Dose: 50 mg Mometasone Furoate (Asmanex 220 Mcg Mdi *) 1 puff INH QPM [facility] Last Admin: 10/12/17 21:57 Dose: 1 puff Multivitamins/Minerals (Theragran/Minerals Tab*) 1 tab PO DAILY [facility] Last Admin: 10/13/17 09:19 Dose: 1 tab Ondansetron HCl (Zofran 40 Mg Vial*) 4 mg IV Q6H PRN PRN Reason: NAUSEA Oxycodone/Acetaminophen (Percocet 5/325 Tab*) 1 tab PO Q4H PRN PRN Reason: PAIN Pravastatin Sodium (Pravachol (Nf)) 20 mg PO QPM [facility] PRN Reason: Protocol Rivaroxaban (Xarelto(*)) 20 mg PO DAILY [facility] Last Admin: 10/13/17 09:19 Dose: 20 mg Tamsulosin HCl (Flomax Cap*) 0.4 mg PO DAILY [facility] Last Admin: 10/13/17 09:19 Dose: 0.4 mg Vital Signs - 8 hr 10/13/17 10/13/17 10/13/17 07:29 07:58 11:21 Temperature 97.4 F 98.5 F Pulse Rate 83 78 Respiratory 20 20 20 Rate Blood Pressure 113/78 105/66 (mmHg) O2 Sat by Pulse 100 97 Oximetry Oxygen Devices in Use Now: None Appearance: obese male resting in bed, appers comfortable, no acute distress. Eyes: No Scleral Icterus Ears/Nose/Mouth/Throat: Clear Oropharnyx, Mucous Membranes Moist Neck: NL Appearance and Movements; NL JVP Respiratory: Symmetrical Chest Expansion and Respiratory Effort, Clear to Auscultation Cardiovascular: NL Sounds; No Murmurs; No JVD, No Edema Abdominal: NL Sounds; No Tenderness; No Distention Extremities: No Edema, No Clubbing, Cyanosis Skin: No Rash or Ulcers, No Nodules or Sclerosis Neurological: Alert and Oriented x 3 Nutrition: Taking PO's Result Diagrams: 10/14/17 04:57 10/14/17 04:57 Assess/Plan/Problems-Billing Assessment: Mr. Newell is a 72 y.o. male with a hx of afib, htn, COPD, obstructive sleep apnea and GERD that presented to the ER with abd pain. found to have kidney stones. - Patient Problems (1) Nephrolithiasis Current Visit: Yes Status: Acute Code(s): N20.0 - CALCULUS OF KIDNEY SNOMED Code(s): 57210209 Comment: - urine +2 blood - continue to monitor and treat pain- will continue to strain urine - creatinine is elevated at 1.32 - abd pain improved from yesterday. (2) Afib Current Visit: Yes Status: Acute Code(s): I48.91 - UNSPECIFIED ATRIAL FIBRILLATION SNOMED Code(s): 61882063 Comment: rate controlled today will continue metoprolol and xeralto (3) HTN (hypertension) Current Visit: Yes Status: Acute Code(s): I10 - ESSENTIAL (PRIMARY) HYPERTENSION SNOMED Code(s): 24560269 Comment: BP stable continue metoprolol (4) COPD (chronic obstructive pulmonary disease) Current Visit: Yes Status: Acute Code(s): J44.9 - CHRONIC OBSTRUCTIVE PULMONARY DISEASE, UNSPECIFIED SNOMED Code(s): 92596889 Comment: Continue home inhalers (5) Obstructive sleep apnea Current Visit: Yes Status: Acute Code(s): G47.33 - OBSTRUCTIVE SLEEP APNEA ( ADULT) (PEDIATRIC) SNOMED Code(s): 24084978 Comment: CPAP at night (6) GERD (gastroesophageal reflux disease) Current Visit: Yes Status: Acute Code(s): K21.9 - GASTRO-ESOPHAGEAL REFLUX DISEASE WITHOUT ESOPHAGITIS SNOMED Code(s): 125929075 Comment: stable no complaints continue pepcid (7) DVT prophylaxis Current Visit: Yes Status: Acute Code(s): WZR3314 - SNOMED Code(s): 751542112 Comment: continue xarelto (8) Full code status Current Visit: Yes Status: Acute Code(s): Z78.9 - OTHER SPECIFIED HEALTH STATUS SNOMED Code(s): 808193443
[2017-10-13] MEDS: CMCS:Pravastatin (NF) 20 MG TAB PO SCH (16:41)
[2017-10-13] MEDS ORDERED: NS 0.9% 1000 ML* 1,000 ML IV SCH (19:38)
--- NOTE | 2017-10-13 19:42 | RAD ---
Indication: Follow-up LEFT hydronephrosis from October 12, 2017 CT. 0.3 cm distal LEFT ureteral stone on CT. Comparison: October 12, 2017 CT. Technique: LEFT unilateral renal ultrasound. Report: 13.1 x 6.6 x 6.6 cm LEFT kidney demonstrates normal cortical echogenicity. No conspicuous stones or hydronephrosis. No perinephric fluid evident. No LEFT ureteral jet visualized at the urinary bladder however this may be technical due to incomplete bladder distention and large body habitus. A RIGHT ureteral jet is visualized. IMPRESSION: Negative for LEFT hydronephrosis.
[2017-10-13] MEDS: cefTRIAXone(*) 1 GM in NS 0.9% 50 ML* 50 ML IVPB SCH (20:11)
[2017-10-13] MEDS: Mometasone 220 MCG MDI INH SCH (20:13)
[2017-10-13] MEDS: Metoprolol Tartrate TAB* 50 mg PO SCH (20:30)
[2017-10-14 05:24] LABS: ABS Basophils 0.1 10^3/ul (0-0.2); ABS Eosinophils 0 10^3/ul (0-0.6); ABS Lymphocytes 1.2 10^3/ul (1.0-4.8); ABS Monocytes 1.4 10^3/ul (0-0.8); ABS Neutrophils 10.8 10^3/ul (1.5-7.7); ABS Nucleated RBC 0 10^3/ul; Eosinophil % 0.3 % (0-6); Hematocrit 42 % (42-52); Hemoglobin 14.3 g/dl (14.0-18.0); Mean Corpuscular HGB Conc 34 g/dl (31-36); Mean Corpuscular Hemoglobin 34 pg (27-31); Mean Corpuscular Volume 100 fL (80-94); Mean Platelet Volume 8.5 um3 (7.4-10.4); Nucleated Red Blood Cells % 0; Platelet Count 203 10^3/ul (150-450); Red Cell Distribution Width 13 % (10.5-15); White Blood Count 13.6 10^3/ul (3.5-10.8)
[2017-10-14 05:39] LABS: EGFR Non-African American 35.3 (>60)
[2017-10-14] MEDS: Tamsulosin CAP* 0.4 MG PO SCH (08:22)
[2017-10-14] MEDS: Multivitamins/Minerals TAB PO SCH (08:23)
[2017-10-14] MEDS: Rivaroxaban TAB(*) 20 MG TAB PO SCH (08:23)
[2017-10-14] MEDS: Famotidine TAB* 20 MG PO SCH (08:23)
[2017-10-14] MEDS: Allopurinol TAB* 100 MG PO SCH (08:23)
[2017-10-14] MEDS: Cyanocobalamin TAB* 500 MCG PO SCH (08:23)
[2017-10-14] MEDS: Metoprolol Tartrate TAB* 100 MG TAB PO SCH (08:23)
[2017-10-14] MEDS ORDERED: NS 0.9% 1000 ML* 1,000 ML IV SCH ×2 (10:00)
[2017-10-14] MEDS: Morphine VIAL* 4 MG/ML VIAL (1 ml vial) IV PRN ×3 (10:29→20:53)
--- NOTE | 2017-10-14 14:13 | CONS ---
CONSULTATION NOTE: DATE OF CONSULT: 10/14/17 HISTORY OF PRESENT ILLNESS: I was asked by the hospitalist service to see this 72-year-old white male because of left ureteral calculus. Mr. Newell is followed in our office because of bladder outlet obstruction and prostate enlargement and has been maintained on tamsulosin 0.4 mg daily. He denies any past history of renal diseases or calculi. He presented to the emergency room 3 days ago with diffuse lower abdominal pain. He did not have any fever or chills and he did not have any change in urinary symptoms. CT of the abdomen and pelvis showed moderate left hydroureteronephrosis and a 3- 4 mm calculus in the distal left ureter about 2 to 3 cm above the ureterovesical junction. The patient was managed with pain medication and was being discharged home and he started having chest tightness. Because of his chest symptoms and to rule out any cardiac event, he was admitted to the telemetry service for observation. His pain was managed with pain medications. His cardiac workup showed atrial fibrillation and some hypertension, but there was no any evidence of myocardial injury. He had a renal ultrasound yesterday evening which showed resolution of the left hydronephrosis. The bladder was not distended to visualize ureteral jet. This morning, his creatinine had gone up from his baseline of 1.3 to 1.9 and he was complaining again of recurrence of the left flank pain. The pain, however, was easily controllable with pain medication. A consultation is being obtained. His urinalysis showed +2 blood. He has a slight leukocytosis. No fever. Past medical history and system review is relevant for AFib, hypertension, COPD , sleep apnea on CPAP. He also has a hemochromatosis and has the need of occasional phlebotomies. MEDICATIONS: In addition to the tamsulosin, he is maintained on Xarelto 20 mg daily, losartan 25 mg daily, ranitidine 300 mg daily, inhalers and colchicine. He is on Pravachol 20 mg for hypercholesterolemia. ALLERGIES: He reports being allergic to PENICILLIN and to SULFA DRUGS. PHYSICAL EXAM: On physical examination, he is a morbidly obese white male who looks very comfortable. He is in no acute pain. Exam of the abdomen is normal without any tenderness. There is minimal degree of low left flank tenderness. Rectal exam is deferred. IMPRESSION: 1. Recurrent episodes of left flank pain secondary to a 3 mm distal left ureteral calculus. 2. Elelevated serum creatinine reflecting the ureteral obstruction. PLAN: Considering the size of the stone, its location, and the fact there was absence hydronephrosis on his ultrasound yesterday and also the fact that the patient is a higher risk to go to the operating room, the plan is for continued observation. The stone has a very likelihood of passing spontaneously. The plan is to repeat his serum creatinine in the morning. If the serum creatinine remains elevated and/or if the patient continues to have episodes of colic, then he will be to taken to the operating room for left ureteroscopy and stone extraction and stent placement. Will be observing him with you. [id number]/CPS #: [id number] NUVIA
[2017-10-14] MEDS: CMCS:Pravastatin (NF) 20 MG TAB PO SCH (16:37)
--- NOTE | 2017-10-14 17:11 | PN ---
Subjective Date of Service: 10/14/17 Interval History: C/o left lower abd pain worse this AM, denies chest pain or shortness of breath , denies n/v/d. denies fever or chills. Family History: Unchanged from Admission Social History: Unchanged from Admission Past Medical History: Unchanged from Admission Objective Active Medications: Acetaminophen (Tylenol Tab*) 650 mg PO Q4H PRN PRN Reason: FEVER/PAIN Last Admin: 10/13/17 16:41 Dose: 650 mg Al Hydrox/Mg Hydrox/Simethicone (Maalox Plus*) 30 ml PO Q4H PRN PRN Reason: INDIGESTION Allopurinol (Zyloprim Tab*) 100 mg PO DAILY [facility] Last Admin: 10/14/17 08:23 Dose: 100 mg Cyanocobalamin (Vitamin B12 Tab*) 1,000 mcg PO DAILY [facility] Last Admin: 10/14/17 08:23 Dose: 1,000 mcg Famotidine (Pepcid Tab*) 40 mg PO DAILY [facility] PRN Reason: Protocol Last Admin: 10/14/17 08:23 Dose: 40 mg Ceftriaxone Sodium 1 gm/ (Sodium Chloride) 50 mls @ 200 mls/hr IVPB Q24H [facility] Last Admin: 10/13/17 20:11 Dose: 200 mls/hr Metoprolol Tartrate (Lopressor Tab*) 100 mg PO QAM [facility] Last Admin: 10/14/17 08:23 Dose: 100 mg Metoprolol Tartrate (Lopressor Tab*) 50 mg PO BEDTIME [facility] Last Admin: 10/13/17 20:30 Dose: 50 mg Mometasone Furoate (Asmanex 220 Mcg Mdi *) 1 puff INH QPM [facility] Last Admin: 10/13/17 20:13 Dose: 1 puff Morphine Sulfate (Morphine Vial*) 2 mg IV Q4H PRN PRN Reason: PAIN - MODERATE TO SEVERE Last Admin: 10/14/17 16:37 Dose: 2 mg Multivitamins/Minerals (Theragran/Minerals Tab*) 1 tab PO DAILY [facility] Last Admin: 10/14/17 08:23 Dose: 1 tab Ondansetron HCl (Zofran 40 Mg Vial*) 4 mg IV Q6H PRN PRN Reason: NAUSEA Oxycodone/Acetaminophen (Percocet 5/325 Tab*) 1 tab PO Q4H PRN PRN Reason: PAIN Last Admin: 10/14/17 07:50 Dose: 1 tab Pravastatin Sodium (Pravachol (Nf)) 20 mg PO QPM [facility] PRN Reason: Protocol Last Admin: 10/14/17 16:37 Dose: 20 mg Rivaroxaban (Xarelto(*)) 20 mg PO DAILY [facility] Tamsulosin HCl (Flomax Cap*) 0.4 mg PO DAILY [facility] Last Admin: 10/14/17 08:22 Dose: 0.4 mg Vital Signs - 8 hr 10/14/17 10/14/17 10/14/17 10:29 11:18 12:06 Temperature 98.2 F Pulse Rate 81 Respiratory 18 16 18 Rate Blood Pressure 133/96 (mmHg) O2 Sat by Pulse 96 Oximetry 10/14/17 16:37 Temperature Pulse Rate Respiratory 18 Rate Blood Pressure (mmHg) O2 Sat by Pulse Oximetry Oxygen Devices in Use Now: None Appearance: appears stated age, obese male, appears uncomfortable resting in bed Eyes: No Scleral Icterus Ears/Nose/Mouth/Throat: Clear Oropharnyx, Mucous Membranes Moist Neck: NL Appearance and Movements; NL JVP, Trachea Midline Respiratory: Symmetrical Chest Expansion and Respiratory Effort, Clear to Auscultation Cardiovascular: NL Sounds; No Murmurs; No JVD Abdominal: NL Sounds; No Tenderness; No Distention, - - obese, mild left CVA tenderness Extremities: No Clubbing, Cyanosis Skin: No Rash or Ulcers Neurological: Alert and Oriented x 3 Nutrition: Taking PO's Result Diagrams: 10/14/17 04:57 10/14/17 04:57 Assess/Plan/Problems-Billing Assessment: Mr. Newell is a 72 y.o. male with a hx of afib, htn, COPD, obstructive sleep apnea and GERD that presented to the ER with abd pain. found to have kidney stones. - Patient Problems (1) Nephrolithiasis Current Visit: Yes Status: Acute Code(s): N20.0 - CALCULUS OF KIDNEY SNOMED Code(s): 36331778 Comment: -consulted urlology - renal ultrasound showed no left ureter jet, but noted this could be do to tech. difficulty. - urine +2 blood - continue to monitor and treat pain- will continue to strain urine - creatinine continues to elevated at 1.89 today - abd pain worse today- positive left CVA tenderness (2) Afib Current Visit: Yes Status: Acute Code(s): I48.91 - UNSPECIFIED ATRIAL FIBRILLATION SNOMED Code(s): 01214575 Comment: rate controlled today will continue metoprolol and xeralto (3) HTN (hypertension) Current Visit: Yes Status: Acute Code(s): I10 - ESSENTIAL (PRIMARY) HYPERTENSION SNOMED Code(s): 41363093 Comment: BP stable continue metoprolol (4) COPD (chronic obstructive pulmonary disease) Current Visit: Yes Status: Acute Code(s): J44.9 - CHRONIC OBSTRUCTIVE PULMONARY DISEASE, UNSPECIFIED SNOMED Code(s): 50165090 Comment: Continue home inhalers (5) Obstructive sleep apnea Current Visit: Yes Status: Acute Code(s): G47.33 - OBSTRUCTIVE SLEEP APNEA ( ADULT) (PEDIATRIC) SNOMED Code(s): 35791368 Comment: CPAP at night (6) GERD (gastroesophageal reflux disease) Current Visit: Yes Status: Acute Code(s): K21.9 - GASTRO-ESOPHAGEAL REFLUX DISEASE WITHOUT ESOPHAGITIS SNOMED Code(s): 668861651 Comment: stable no complaints continue pepcid (7) DVT prophylaxis Current Visit: Yes Status: Acute Code(s): KJC9900 - SNOMED Code(s): 171208301 Comment: - will hold xeralto and restart tomorrow evening - for the event the patient may need surgical intervention (8) Full code status Current Visit: Yes Status: Acute Code(s): Z78.9 - OTHER SPECIFIED HEALTH STATUS SNOMED Code(s): 101772032
[2017-10-14] MEDS: cefTRIAXone(*) 1 GM in NS 0.9% 50 ML* 50 ML IVPB SCH (19:37)
[2017-10-14] MEDS: Metoprolol Tartrate TAB* 50 mg PO SCH (19:39)
[2017-10-14] MEDS: Mometasone 220 MCG MDI INH SCH (20:22)
[2017-10-15 06:38] LABS: ABS Basophils 0 10^3/ul (0-0.2); ABS Eosinophils 0.1 10^3/ul (0-0.6); ABS Lymphocytes 1.1 10^3/ul (1.0-4.8); ABS Monocytes 1.4 10^3/ul (0-0.8); ABS Neutrophils 10.1 10^3/ul (1.5-7.7); ABS Nucleated RBC 0 10^3/ul; Eosinophil % 0.7 % (0-6); Hematocrit 42 % (42-52); Lymphocyte % 8.9 % (25-47); Mean Corpuscular HGB Conc 36 g/dl (31-36); Mean Corpuscular Hemoglobin 35 pg (27-31); Mean Corpuscular Volume 98 fL (80-94); Mean Platelet Volume 8.3 um3 (7.4-10.4); Nucleated Red Blood Cells % 0; Platelet Count 190 10^3/ul (150-450); Red Blood Count 4.31 10^6/ul (4.0-5.4); Red Cell Distribution Width 12 % (10.5-15); White Blood Count 12.8 10^3/ul (3.5-10.8)
[2017-10-15 06:56] LABS: EGFR Non-African American 45.8 (>60)
[2017-10-15] MEDS: Famotidine TAB* 20 MG PO SCH (07:49)
[2017-10-15] MEDS: Allopurinol TAB* 100 MG PO SCH (07:49)
[2017-10-15] MEDS: Metoprolol Tartrate TAB* 100 MG TAB PO SCH (07:49)
[2017-10-15] MEDS: Tamsulosin CAP* 0.4 MG PO SCH (07:49)
[2017-10-15] MEDS: Cyanocobalamin TAB* 500 MCG PO SCH (07:49)
[2017-10-15] MEDS: Multivitamins/Minerals TAB PO SCH (07:50)
[2017-10-15 08:09] VITALS: BP 136/87
[2017-10-15] MEDS ORDERED: traMADol TAB* 50 MG PO PRN ×2 (08:25→08:30)
[2017-10-15] MEDS ORDERED: Rivaroxaban TAB(*) 10 MG PO SCH (17:00)
== END 2017-10-15 14:17 | disposition home or self-care (01) | DRG 694 ==
LOC: ED 11:05 → MEDTELE 19:22 → OBSVTOIN 10-13 14:00
PROVIDERS: ADMIT Hospitalist; ATTEND Hospitalist
PROC: 5A09457 Assistance with Respiratory Ventilation, 24-96 Consecutive Hours, Continuous Positive Airway Pressure (ICD-10-PCS; principal; 2017-10-13)
DX: N13.2 Hydronephrosis with renal and ureteral calculous obstruction (principal); Z68.41 Body mass index [BMI] 40.0-44.9, adult; N13.8 Other obstructive and reflux uropathy; I48.91 Unspecified atrial fibrillation; I10 Essential (primary) hypertension; J44.9 Chronic obstructive pulmonary disease, unspecified; G47.33 Obstructive sleep apnea (adult) (pediatric); K21.9 Gastro-esophageal reflux disease without esophagitis; D13.1 Benign neoplasm of stomach; M10.9 Gout, unspecified; E83.42 Hypomagnesemia; E66.9 Obesity, unspecified; E86.0 Dehydration; E83.119 Hemochromatosis, unspecified; N40.1 Benign prostatic hyperplasia with lower urinary tract symptoms; Z79.899 Other long term (current) drug therapy; Z80.9 Family history of malignant neoplasm, unspecified; Z79.01 Long term (current) use of anticoagulants; Z88.0 Allergy status to penicillin; Z88.2 Allergy status to sulfonamides; Z87.891 Personal history of nicotine dependence; Z91.030 Bee allergy status; Z82.49 Family history of ischemic heart disease and other diseases of the circulatory system; Z83.3 Family history of diabetes mellitus
CPT/HCPCS: 36415; 74177; 76775; 80048; 80053; 81003; 81015; 83605; 83690; 83735; 84484; 85025; 86140; 87086; 93005; 94640; 94660; 99285; A9270-GY; J0696; J0780; J1885; J2270; J2765; J3475; Q9967

== ENCOUNTER 2019-07-07 11:43 | Emergency (ER) | payer MEDICARE, BC ==
[2019-07-07 15:13] LABS: ABS Lymphocytes 0.5 10^3/ul (1.0-4.8); ABS Monocytes 1.1 10^3/ul (0-0.8); ABS Neutrophils 9.6 10^3/ul (1.5-7.7); Eosinophil % 0.4 %; Hematocrit 45 % (42-52); Hemoglobin 15.4 g/dL (14.0-18.0); Lymphocyte % 4.2 %; Mean Corpuscular HGB Conc 35 g/dL (31-36); Mean Corpuscular Hemoglobin 34 pg (27-31); Mean Corpuscular Volume 98 fL (80-94); Nucleated Red Blood Cells % 0.1; Platelet Count 242 10^3/uL (150-450); Red Blood Count 4.55 10^6 /uL (4.18-5.48); Red Cell Distribution Width 13 % (10-15); White Blood Count 11.2 10^3/uL (3.5-10.8)
[2019-07-07 15:37] LABS: Albumin 3.9 g/dL (3.2-5.2); Albumin/Globulin Ratio 1.4 (1-3); BUN/Creatinine Ratio 17.3 (8-20); C Reactive Protein 146.66 mg/L (<8.01); EGFR Non-African American 75.2 (>60); Globulin 2.7 g/dL (2-4); Potassium 4.1 mmol/L (3.5-5.0); Total Bilirubin 1.7 mg/dL (0.2-1.0); Total Protein 6.6 g/dL (6.4-8.9)
[2019-07-07] MEDS ORDERED: NS 0.9% 1000 ML** 1,000 ML IV.FLUID IV ONE (16:53)
[2019-07-07] MEDS ORDERED: Acetaminophen TAB* 325 MG PO ONE (16:54)
[2019-07-07] MEDS ORDERED: Albuterol/Ipratropium NEB.SOL* Albuterol 2.5 MG/Ipratropium 0.5 MG 3 ML INH ONE (16:54)
[2019-07-07 19:11] LABS: Urine Bacteria Absent (Absent); Urine Red Blood Cell Trace(0-2/hpf) (Absent); Urine White Blood Cell Trace(0-5/hpf) (Absent)
--- NOTE | 2019-07-07 19:15 | ED ---
HPI Febrile Illness - HPI Summary HPI Summary: 73-year-old male presents with fatigue and muscle aches for the past couple days. He states that he has been short of breath more with ambulation. He has a history of asthma. States that he's been wheezing and has had some tightness that feels like his asthma. He states has been treated for infection on his chest wall (abscess) that was taking an antibiotic for 5 days that finished a week ago.. He states the area has been draining and has been looking better. Denies any spreading redness around the area. He admits to occasional dental pain. Denies any cough. No abdominal pain. Has had diarrhea for the past couple days. Has had some nausea but no vomiting. - History of Current Complaint Chief Complaint: EDWeakness Time Seen by Provider: 07/07/19 16:39 Pain Intensity: 8 - Additional Pertinent History Primary Care Physician: RAMA - Allergy/Home Medications Allergies/Adverse Reactions: Allergies Allergy/AdvReac Type Severity Reaction Status Date / Time bee venom protein (honey bee) Allergy Unknown Unknown Verified 07/07/19 11:49 Reaction Details Penicillins Allergy Unknown See Comment Verified 07/07/19 11:49 Sulfa (Sulfonamide Allergy Unknown See Comment Verified 07/07/19 11:49 Antibiotics) Home Medications: Home Medications Allopurinol TAB* [Zyloprim 100 MG TAB*] 100 mg PO DAILY 10/12/17 [History Confirmed 07/07/19] Ciclesonide 160 MG MDI (NF) [Alvesco 160 MDI (NF)] 1 puff INH BID 10/12/17 [ History Confirmed 07/07/19] Cyanocobalamin TAB* [Vitamin B12 TAB*] 1,000 mcg PO DAILY 10/12/17 [History Confirmed 07/07/19] Levalbuterol HFA INHALER* [Xopenex Hfa Inhaler*] 1 puff INH Q6H PRN 10/12/17 [ History Confirmed 07/07/19] Loperamide CAP* [Imodium CAP*] 2 mg PO DAILY 10/12/17 [History Confirmed ] Losartan TAB* [Cozaar TAB*] 25 mg PO DAILY 10/12/17 [History Confirmed 07/07/19] Manganese Gluconate 400 mg PO QPM 10/12/17 [History Confirmed 07/07/19] Manganese Gluconate 800 mg PO QAM 10/12/17 [History Confirmed 07/07/19] Metoprolol Tartrate TAB* [Lopressor TAB*] 50 mg PO QPM 10/12/17 [History Confirmed 07/07/19] Metoprolol Tartrate TAB* [Lopressor TAB*] 100 mg PO QAM 10/12/17 [History Confirmed 07/07/19] Multivitamins/Minerals TAB* [Theragran/minerals TAB*] 1 tab PO DAILY 10/12/17 [ History Confirmed 07/07/19] Pravastatin (NF) [Pravachol (NF)] 20 mg PO QPM 10/12/17 [History Confirmed 07/06] Ranitidine TAB (NF) [Zantac TAB (NF)] 300 mg PO DAILY 10/12/17 [History Confirmed 07/07/19] Rivaroxaban TAB(*) [Xarelto 10 mg (*)] 20 mg PO DAILY 10/12/17 [History Confirmed 07/07/19] Tamsulosin CAP* [Flomax CAP*] 0.4 mg PO DAILY 10/12/17 [History Confirmed ] Acetaminophen TAB* [Tylenol TAB*] 650 mg PO Q4H PRN tab 10/15/17 [Rx Confirmed 07/07/19] Ondansetron ODT TAB* [Zofran 4 MG Odt TAB*] 4 mg PO Q8H PRN #10 tab.odt [Rx Confirmed 07/07/19] traMADol TAB* [Ultram*] 50 mg PO Q4H PRN #20 tab MDD 6 10/15/17 [Rx Confirmed ] Torsemide 2.5 - 5 mg PO DAILY 07/07/19 [History Confirmed 07/07/19] predniSONE 50 mg TAB [Deltasone 50 mg TAB] 50 mg PO DAILY #4 tab 07/07/19 [Rx] PMH/Surg Hx/FS Hx/Imm Hx Endocrine/Hematology History: Reports: Hx Blood Disorders - hemochromatosis Denies: Hx Diabetes, Hx Thyroid Disease Cardiovascular History: Reports: Hx Hypercholesterolemia, Hx Hypertension Denies: Hx Pacemaker/ICD Respiratory History: Reports: Hx Asthma, Hx Seasonal Allergies, Hx Sleep Apnea - severe BRIT; current CPAP user Denies: Hx Chronic Obstructive Pulmonary Disease (COPD) GI History: Reports: Hx Gastroesophageal Reflux Disease Denies: Hx Ulcer Sensory History: Reports: Hx Contacts or Glasses, Hx Eye Injury - left eye, split vision Denies: Hx Legally Blind, Hx Deafness, Hx Hearing Aid Opthamlomology History: Reports: Hx Contacts or Glasses, Hx Eye Injury - left eye, split vision Denies: Hx Legally Blind Psychiatric History: Reports: Hx Depression Denies: Hx Panic Disorder - Surgical History Surgery Procedure, Year, and Place: At age 14 - a piece of steel went into his eye and split his iris - has split vision in that eye- surgury to remove piece of metal from the eye.- 05/09/2007 ORBIT XRAYS COMPLETED AND CLEARED FOR MRI BY DR LEVIN. hernia repair many years ago Infectious Disease History: No Infectious Disease History: Denies: Hx Clostridium Difficile, Hx Hepatitis, Hx Human Immunodeficiency Virus (HIV), Hx of Known/Suspected MRSA, Hx Shingles, Hx Tuberculosis, Hx Known/ Suspected VRE, Hx Known/Suspected VRSA, History Other Infectious Disease, Traveled Outside the [place] in Last 30 Days - Family History Known Family History: Positive: Other - DM - mother and sister - Social History Alcohol Use: Rare Hx Substance Use: No Substance Use Type: Reports: None Hx Tobacco Use: No Smoking Status (MU): Former Smoker Type: Cigarettes Amount Used/How Often: Quit 2001 Length of Time of Smoking/Using Tobacco: 1/2 PPD for 20+ years Have You Smoked in the Last Year: No Review of Systems Positive: Fever, Chills, Fatigue Negative: Chest Pain Positive: Shortness Of Breath. Negative: Cough Positive: Diarrhea, Nausea. Negative: Abdominal Pain, Vomiting Positive: Myalgia - all over muscle aches All Other Systems Reviewed And Are Negative: Yes Physical Exam Triage Information Reviewed: Yes Vital Signs On Initial Exam: Initial Vitals Temp Pulse Resp BP Pulse Ox 98.2 F 118 20 112/77 99 07/07/19 11:46 07/07/19 11:46 07/07/19 11:46 07/07/19 11:46 07/07/19 11:46 Vital Signs Reviewed: Yes Appearance: Positive: Well-Appearing Skin: Positive: Warm, Dry, Other - healing lesion to chest wall Head/Face: Positive: Normal Head/Face Inspection Eyes: Positive: Normal, Conjunctiva Clear ENT: Positive: Pharynx normal Dental: Positive: Gross Decay/Caries @ - throughout, Other - no erythema to gum. Negative: Percussion Tenderness @, Abscess @ Neck: Positive: Supple, Nontender, No Lymphadenopathy Respiratory/Lung Sounds: Positive: Clear to Auscultation, Breath Sounds Present Cardiovascular: Positive: Normal, RRR Abdomen Description: Positive: Nontender, Soft Bowel Sounds: Positive: Present Musculoskeletal: Positive: Normal Neurological: Positive: Normal Psychiatric: Positive: Normal Procedures - Sedation Patient Received Moderate/Deep Sedation with Procedure: No Diagnostics - Vital Signs Vital Signs Temp Pulse Resp BP Pulse Ox 07/07/19 18:49 104 99/67 94 07/07/19 18:30 88/59 07/07/19 18:01 93 97 07/07/19 18:00 107 96/81 94 07/07/19 17:30 102 94/77 96 07/07/19 17:12 86 16 100 07/07/19 17:01 100 96 07/07/19 17:00 108 110/85 96 07/07/19 16:37 100.9 F 07/07/19 16:30 107 124/95 95 07/07/19 16:29 89 95 07/07/19 15:44 101.2 F 107 16 106/78 92 07/07/19 13:39 98.2 F 112 14 103/75 96 07/07/19 11:46 98.2 F 118 20 112/77 99 - Laboratory Lab Results: Lab Results 07/07/19 07/07/19 07/07/19 Range/Units 14:23 14:56 14:56 WBC 11.2 H (3.5-10.8) 10^3/uL RBC 4.55 (4.18-5.48) 10^6 /uL Hgb 15.4 (14.0-18.0) g/dL Hct 45 (42-52) % MCV 98 H (80-94) fL MCH 34 H (27-31) pg MCHC 35 (31-36) g/dL RDW 13 (10-15) % Plt Count 242 (150-450) 10^3/uL MPV 9.0 (7.4-10.4) fL Neut % (Auto) 85.5 % Lymph % (Auto) 4.2 % [facility] % (Auto) 9.6 % Eos % (Auto) 0.4 % Baso % (Auto) 0.3 % Absolute Neuts (auto) 9.6 H (1.5-7.7) 10^3/ul Absolute Lymphs (auto) 0.5 L (1.0-4.8) 10^3/ul Absolute Monos (auto) 1.1 H (0-0.8) 10^3/ul Absolute Eos (auto) 0.0 (0-0.6) 10^3/ul Absolute Basos (auto) 0.0 (0-0.2) 10^3/ul Absolute Nucleated RBC 0.0 10^3/ul Nucleated RBC % 0.1 Sodium 135 (135-145) mmol/L Potassium 4.1 (3.5-5.0) mmol/L Chloride 100 L (101-111) mmol/L Carbon Dioxide 29 (22-32) mmol/L Anion Gap 6 (2-11) mmol/L BUN 17 (6-24) mg/dL Creatinine 0.98 (0.67-1.17) mg/dL Est GFR ( Amer) 91.0 (>60) Est GFR (Non-Af Amer) 75.2 (>60) BUN/Creatinine Ratio 17.3 (8-20) Glucose 140 H (70-100) mg/dL Lactic Acid (0.5-2.0) mmol/L Calcium 9.0 (8.6-10.3) mg/dL Magnesium 2.0 (1.9-2.7) mg/dL Total Bilirubin 1.70 H (0.2-1.0) mg/dL AST 33 (13-39) U/L ALT 28 (7-52) U/L Alkaline Phosphatase 63 (34-104) U/L C-Reactive Protein 146.66 H (<8.01) mg/L B-Natriuretic Peptide (<=100) pg/mL Total Protein 6.6 (6.4-8.9) g/dL Albumin 3.9 (3.2-5.2) g/dL Globulin 2.7 (2-4) g/dL Albumin/Globulin Ratio 1.4 (1-3) Lipase 25 (11.0-82.0) U/L Urine Color Pending Urine Appearance Pending Urine pH Pending Ur Specific [place] Pending Urine Protein Pending Urine Ketones Pending Urine Blood Pending Urine Nitrate Pending Urine Bilirubin Pending Urine Urobilinogen Pending Ur Leukocyte Esterase Pending Urine WBC (Auto) Trace(0-5/hpf) (Absent) Urine RBC (Auto) Trace(0-2/hpf) (Absent) Urine Bacteria Absent (Absent) Urine Glucose Pending Urine Ascorbic Acid Pending 07/07/19 07/07/19 Range/Units 14:56 14:56 WBC (3.5-10.8) 10^3/uL RBC (4.18-5.48) 10^6 /uL Hgb (14.0-18.0) g/dL Hct (42-52) % MCV (80-94) fL MCH (27-31) pg MCHC (31-36) g/dL RDW (10-15) % Plt Count (150-450) 10^3/uL MPV (7.4-10.4) fL Neut % (Auto) % Lymph % (Auto) % [facility] % (Auto) % Eos % (Auto) % Baso % (Auto) % Absolute Neuts (auto) (1.5-7.7) 10^3/ul Absolute Lymphs (auto) (1.0-4.8) 10^3/ul Absolute Monos (auto) (0-0.8) 10^3/ul Absolute Eos (auto) (0-0.6) 10^3/ul Absolute Basos (auto) (0-0.2) 10^3/ul Absolute Nucleated RBC 10^3/ul Nucleated RBC % Sodium (135-145) mmol/L Potassium (3.5-5.0) mmol/L Chloride (101-111) mmol/L Carbon Dioxide (22-32) mmol/L Anion Gap (2-11) mmol/L BUN (6-24) mg/dL Creatinine (0.67-1.17) mg/dL Est GFR ( Amer) (>60) Est GFR (Non-Af Amer) (>60) BUN/Creatinine Ratio (8-20) Glucose (70-100) mg/dL Lactic Acid 1.5 (0.5-2.0) mmol/L Calcium (8.6-10.3) mg/dL Magnesium (1.9-2.7) mg/dL Total Bilirubin (0.2-1.0) mg/dL AST (13-39) U/L ALT (7-52) U/L Alkaline Phosphatase (34-104) U/L C-Reactive Protein (<8.01) mg/L B-Natriuretic Peptide 99 (<=100) pg/mL Total Protein (6.4-8.9) g/dL Albumin (3.2-5.2) g/dL Globulin (2-4) g/dL Albumin/Globulin Ratio (1-3) Lipase (11.0-82.0) U/L Urine Color Urine Appearance Urine pH Ur Specific [place] Urine Protein Urine Ketones Urine Blood Urine Nitrate Urine Bilirubin Urine Urobilinogen Ur Leukocyte Esterase Urine WBC (Auto) (Absent) Urine RBC (Auto) (Absent) Urine Bacteria (Absent) Urine Glucose Urine Ascorbic Acid Result Diagrams: 07/07/19 14:56 07/07/19 14:56 Lab Statement: Any lab studies that have been ordered have been reviewed, and results considered in the medical decision making process. - Radiology chest Radiology Interpretation Completed By: ED Physician Summary of Radiographic Findings: no active disease Re-Evaluation - Re-Evaluation First Eval Change: Improved Second Eval Re-Evaluation Time: 20:20 Change: Improved Comment: able to walk to bathroom Course/Dx - Course Course Of Treatment: 73-year-old male presents with fatigue and muscle aches for the past couple days. He states that he has been short of breath more with ambulation. He has a history of asthma. States that he's been wheezing and has had some tightness that feels like his asthma. He states has been treated for infection on his chest wall (abscess) that was taking an antibiotic for 5 days that finished a week ago.. He states the area has been draining and has been looking better. Denies any spreading redness around the area. He admits to occasional dental pain. Denies any cough. No abdominal pain. Has had diarrhea for the past couple days. Has had some nausea but no vomiting. On exam decreased breath sounds heard. gave breathing treatment with improvement. has healing area where abscess was that had some drainage but no erythema except for where bandaid was which appears like skin irritation. Abdomen soft nontender. Gave fluids and Tylenol and feeling better. Patient was able to ambulate to the bathroom. White blood count 11.2. CRP is elevated. Send stool for culture. Stool is formed so unable to do C. difficile. Chest x-ray no pneumonia. Urine negative. Flu negative. area where had abscess appears to be improving and has poor dentition but no infection noted there either. Discuss likely viral syndrome. Told to treat supportively. will place on steroid for asthma. told follow up with primary. Patient understands agrees the plan. - Febrile Illness Differential Diagnoses: Pneumonia, Sepsis, Viremia - Diagnoses Provider Diagnoses: Asthma, Viral syndrome, Diarrhea Discharge ED - Sign-Out/Discharge Documenting (check all that apply): Patient Departure - Discharge Plan Condition: Good Disposition: HOME Prescriptions: predniSONE 50 mg TAB [Deltasone 50 mg TAB] 50 mg PO DAILY #4 tab Patient Education Materials: Viral Syndrome (ED) Referrals: Maggie Willis MD [Primary Care Provider] - Additional Instructions: Take Tylenol and ibuprofen for muscle aches and fever every 6 hours use inhaler every 6 hours for shortness of breath take steroid once for 4 more days Drink plenty of fluids Follow up with primary within 5 days Return to ED if develop any new or worsening symptoms - Billing Disposition and Condition Condition: GOOD Disposition: Home
[2019-07-07 19:31] LABS: Urine Appearance Clear; Urine Bilirubin Negative (Negative); Urine Blood Negative (Negative); Urine Color Amber; Urine Glucose Negative (Negative); Urine Ketones Negative (Negative); Urine Nitrite Negative (Negative); Urine Protein Negative (Negative); Urine Specific Gravity 1.018 (1.010-1.030); Urine Urobilinogen Negative (Negative)
[2019-07-07 19:47] LABS: Influenza A Molecular Negative (Negative); Influenza B Molecular Negative (Negative)
[2019-07-07 21:31] VITALS: BP 108/73
== END 2019-07-07 20:42 | disposition home or self-care (01) ==
LOC: ED 11:43
DX: J45.909 Unspecified asthma, uncomplicated (principal); B34.9 Viral infection, unspecified; R53.83 Other fatigue; I10 Essential (primary) hypertension; E78.00 Pure hypercholesterolemia, unspecified; K21.9 Gastro-esophageal reflux disease without esophagitis; R06.02 Shortness of breath; R19.7 Diarrhea, unspecified; Z88.0 Allergy status to penicillin; Z79.51 Long term (current) use of inhaled steroids; Z79.01 Long term (current) use of anticoagulants; Z87.891 Personal history of nicotine dependence; Z79.899 Other long term (current) drug therapy; Z88.2 Allergy status to sulfonamides
CPT/HCPCS: 36415; 71046; 80053; 81003; 83605; 83630; 83690; 83735; 83880; 85025; 86140; 87040; 87070; 87086; 87205; 87640; 87641; 96360; 99284; A9270-GY; J7512

== ENCOUNTER 2020-10-10 11:04 | Inpatient (IN) ==
[2020-10-10 13:01] LABS: Hematocrit 42 % (42-52); Hemoglobin 14.5 g/dL (14.0-18.0); Mean Corpuscular HGB Conc 34 g/dL (31-36); Mean Corpuscular Hemoglobin 35 pg (27-31); Mean Corpuscular Volume 101 fL (80-94); Mean Platelet Volume 8.1 fL (7.4-10.4); Platelet Count 317 10^3/uL (150-450); Red Blood Count 4.16 10^6 /uL (4.18-5.48); Red Cell Distribution Width 13 % (10-15); White Blood Count 19.6 10^3/uL (3.5-10.8)
[2020-10-10] MEDS ORDERED: Clindamycin 900 MG/D5W BAG 900 MG/50 ML BAG IVPB ONE (13:08)
[2020-10-10 13:17] LABS: Albumin 4.1 g/dL (3.2-5.2); Albumin/Globulin Ratio 1.5 (1-3); C Reactive Protein 197.31 mg/L (<8.01); Calcium 9.2 mg/dL (8.6-10.3); EGFR African American 88.4 (>60); Globulin 2.8 g/dL (2-4); Potassium 4.3 mmol/L (3.5-5.0); Total Bilirubin 2.3 mg/dL (0.2-1.0); Total Protein 6.9 g/dL (6.4-8.9)
[2020-10-10] MEDS ORDERED: Ondansetron 4 mg VIAL 2 MG/ML 2 ml VIAL IV ONE (13:30)
[2020-10-10] MEDS ORDERED: Morphine 4 MG/ML VIAL (1 ml) IV ONE (13:30)
[2020-10-10] MEDS ORDERED: Iohexol 300 (CONTRAST) 10 ML SDV IV ONE (13:44)
[2020-10-10 14:07] LABS: ABS Lymphocytes 0.6 10^3/ul (1.0-4.8); ABS Monocytes 1.9 10^3/ul (0-0.8); Eosinophil % 0.1 %; Lymphocyte % 3.3 %
[2020-10-10] MEDS ORDERED: Levalbuterol HFA INHALER MDI INH PRN (14:30)
[2020-10-10] MEDS ORDERED: Morphine 2 MG/ML SYRINGE IV PRN (14:39)
[2020-10-10] MEDS: cefTRIAXone 1 gm/50 mL NS BAG 1 GM/50 ML BAG IVPB SCH (17:12)
[2020-10-10] MEDS ORDERED: Metoprolol Tartrate 5 mg VIAL 5 ml VIAL (1 mg/ml) IV ONE (18:15)
[2020-10-10] MEDS ORDERED: Metoprolol Tartrate 5 mg VIAL 5 ml VIAL (1 mg/ml) ONE (18:18)
[2020-10-10] MEDS ORDERED: NS 0.9% 500 ml BAG 500 ML IV ONE (18:36)
[2020-10-10] MEDS ORDERED: NS 0.9% 1000 ml BAG 1,000 ML IV SCH (18:45)
[2020-10-10] MEDS: Mometasone 220 MCG MDI INH SCH (19:50)
[2020-10-11] MEDS: HYDROcodone/ACETAMIN 5/325 mg TAB PO PRN ×2 (02:13→10:54)
[2020-10-11 03:45] LABS: Hematocrit 36 % (42-52); Hemoglobin 12.3 g/dL (14.0-18.0); Mean Corpuscular HGB Conc 34 g/dL (31-36); Mean Corpuscular Hemoglobin 34 pg (27-31); Mean Corpuscular Volume 101 fL (80-94); Mean Platelet Volume 7.8 fL (7.4-10.4); Platelet Count 263 10^3/uL (150-450); Red Blood Count 3.59 10^6 /uL (4.18-5.48); Red Cell Distribution Width 13 % (10-15)
[2020-10-11 04:00] LABS: ABS Lymphocytes 0.8 10^3/ul (1.0-4.8); ABS Neutrophils 12.1 10^3/ul (1.5-7.7); Eosinophil % 0.3 %; Lymphocyte % 5.3 %
[2020-10-11 04:03] LABS: C Reactive Protein 197.08 mg/L (<8.01); EGFR African American 94.9 (>60); EGFR Non-African American 78.4 (>60); Potassium 3.9 mmol/L (3.5-5.0)
[2020-10-11] MEDS: Multivitamins/Minerals TAB PO SCH (09:06)
[2020-10-11 09:36] LABS: Hematocrit 39 % (42-52); Hemoglobin 13.4 g/dL (14.0-18.0); Mean Corpuscular HGB Conc 34 g/dL (31-36); Mean Corpuscular Hemoglobin 35 pg (27-31); Mean Corpuscular Volume 101 fL (80-94); Platelet Count 285 10^3/uL (150-450); Red Blood Count 3.89 10^6 /uL (4.18-5.48); Red Cell Distribution Width 13 % (10-15); White Blood Count 16.1 10^3/uL (3.5-10.8)
[2020-10-11 09:39] LABS: ABS Basophils 0.1 10^3/ul (0-0.2); ABS Lymphocytes 0.9 10^3/ul (1.0-4.8); ABS Monocytes 1.8 10^3/ul (0-0.8); ABS Neutrophils 13.3 10^3/ul (1.5-7.7); Eosinophil % 0.1 %; Lymphocyte % 5.5 %
[2020-10-11 09:52] LABS: Calcium 8.7 mg/dL (8.6-10.3); EGFR African American 96.1 (>60); EGFR Non-African American 79.4 (>60); Potassium 4.1 mmol/L (3.5-5.0)
[2020-10-11] MEDS ORDERED: Diltiazem (ADVAN VIAL) 100 MG/100 ML ADDV.BAG IV SCH (10:00)
[2020-10-11] MEDS: cefTRIAXone 1 gm/50 mL NS BAG 1 GM/50 ML BAG IVPB SCH (17:32)
[2020-10-11 19:38] LABS: Urine Appearance Clear; Urine Bilirubin Negative (Negative); Urine Blood Negative (Negative); Urine Color Amber; Urine Glucose Negative (Negative); Urine Ketones Trace (Negative); Urine Nitrite Negative (Negative); Urine Protein Negative (Negative); Urine Specific Gravity 1.025 (1.002-1.030); Urine Urobilinogen Negative (Negative)
[2020-10-11] MEDS: Mometasone 220 MCG MDI INH SCH (19:57)
[2020-10-12 06:09] LABS: Hematocrit 37 % (42-52); Hemoglobin 12.6 g/dL (14.0-18.0); Mean Corpuscular HGB Conc 34 g/dL (31-36); Mean Corpuscular Hemoglobin 35 pg (27-31); Mean Corpuscular Volume 101 fL (80-94); Mean Platelet Volume 8.1 fL (7.4-10.4); Platelet Count 311 10^3/uL (150-450); Red Blood Count 3.62 10^6 /uL (4.18-5.48); Red Cell Distribution Width 13 % (10-15); White Blood Count 14.1 10^3/uL (3.5-10.8)
[2020-10-12 06:24] LABS: Calcium 8.8 mg/dL (8.6-10.3); EGFR African American 101.1 (>60); EGFR Non-African American 83.6 (>60)
[2020-10-12 06:40] LABS: ABS Lymphocytes 1.1 10^3/ul (1.0-4.8); ABS Monocytes 1.9 10^3/ul (0-0.8); ABS Neutrophils 11.1 10^3/ul (1.5-7.7); Eosinophil % 0.3 %; Lymphocyte % 7.8 %
[2020-10-12] MEDS: Multivitamins/Minerals TAB PO SCH (08:27)
[2020-10-12] MEDS: cefTRIAXone 1 gm/50 mL NS BAG 1 GM/50 ML BAG IVPB SCH (18:50)
[2020-10-12] MEDS: HYDROcodone/ACETAMIN 5/325 mg TAB PO PRN (19:58)
[2020-10-12] MEDS: Mometasone 220 MCG MDI INH SCH (20:55)
[2020-10-13] MEDS: Multivitamins/Minerals TAB PO SCH (08:12)
[2020-10-13] MEDS: HYDROcodone/ACETAMIN 5/325 mg TAB PO PRN (10:33)
[2020-10-13] MEDS ORDERED: Senna TAB 8.6 mg TAB PO PRN (12:05)
[2020-10-13] MEDS: Polyethylene Glycol 3350 17 GM PACKET PO PRN (14:43)
[2020-10-13] MEDS: cefTRIAXone 1 gm/50 mL NS BAG 1 GM/50 ML BAG IVPB SCH (17:41)
[2020-10-13] MEDS: Mometasone 220 MCG MDI INH SCH (21:33)
[2020-10-14] MEDS: HYDROcodone/ACETAMIN 5/325 mg TAB PO PRN ×3 (03:21→21:24)
[2020-10-14] MEDS ORDERED: Magnesium Sulfate IV 1GM/100ML 1 GM/100 ML BAG IV ONE (06:20)
[2020-10-14 07:02] LABS: ABS Eosinophils 0.1 10^3/ul (0-0.6); ABS Monocytes 1.3 10^3/ul (0-0.8); ABS Neutrophils 10.2 10^3/ul (1.5-7.7); Eosinophil % 1.2 %; Hematocrit 38 % (42-52); Hemoglobin 13.3 g/dL (14.0-18.0); Lymphocyte % 7.9 %; Mean Corpuscular HGB Conc 35 g/dL (31-36); Mean Corpuscular Hemoglobin 35 pg (27-31); Mean Corpuscular Volume 102 fL (80-94); Mean Platelet Volume 7.9 fL (7.4-10.4); Nucleated Red Blood Cells % 0.1; Platelet Count 350 10^3/uL (150-450); Red Blood Count 3.76 10^6 /uL (4.18-5.48); Red Cell Distribution Width 13 % (10-15); White Blood Count 12.8 10^3/uL (3.5-10.8)
[2020-10-14 07:21] LABS: C Reactive Protein 170.33 mg/L (<8.01); Calcium 8.6 mg/dL (8.6-10.3); EGFR African American 106.6 (>60); EGFR Non-African American 88.1 (>60)
[2020-10-14] MEDS: Multivitamins/Minerals TAB PO SCH (08:01)
[2020-10-14] MEDS: cefTRIAXone 1 gm/50 mL NS BAG 1 GM/50 ML BAG IVPB SCH (18:55)
[2020-10-14] MEDS: Magnesium Hydroxide LIQ 30 ML UDC PO PRN (18:55)
[2020-10-14] MEDS: Mometasone 220 MCG MDI INH SCH (19:28)
[2020-10-15] MEDS: HYDROcodone/ACETAMIN 5/325 mg TAB PO PRN (03:12)
[2020-10-15] MEDS: Multivitamins/Minerals TAB PO SCH (08:19)
[2020-10-15] MEDS: Magnesium Hydroxide LIQ 30 ML UDC PO PRN ×2 (16:35→22:51)
[2020-10-15] MEDS: Polyethylene Glycol 3350 17 GM PACKET PO PRN (16:35)
[2020-10-15] MEDS: cefTRIAXone 1 gm/50 mL NS BAG 1 GM/50 ML BAG IVPB SCH (16:36)
[2020-10-15] MEDS: Mometasone 220 MCG MDI INH SCH (20:11)
[2020-10-15] MEDS: Lactulose 30 ml UDC PO SCH (22:51)
[2020-10-16] MEDS ORDERED: Metoprolol Tartrate 5 mg VIAL 5 ml VIAL (1 mg/ml) IV ONE (03:59)
[2020-10-16] MEDS: Lactulose 30 ml UDC PO SCH ×3 (04:04→17:01)
[2020-10-16 06:14] LABS: ABS Basophils 0.1 10^3/ul (0-0.2); ABS Eosinophils 0.1 10^3/ul (0-0.6); ABS Lymphocytes 0.7 10^3/ul (1.0-4.8); ABS Monocytes 0.9 10^3/ul (0-0.8); ABS Neutrophils 11.7 10^3/ul (1.5-7.7); Eosinophil % 0.4 %; Hematocrit 42 % (42-52); Hemoglobin 14.4 g/dL (14.0-18.0); Lymphocyte % 5.4 %; Mean Corpuscular HGB Conc 34 g/dL (31-36); Mean Corpuscular Hemoglobin 34 pg (27-31); Mean Corpuscular Volume 101 fL (80-94); Mean Platelet Volume 7.4 fL (7.4-10.4); Platelet Count 458 10^3/uL (150-450); Red Blood Count 4.18 10^6 /uL (4.18-5.48); Red Cell Distribution Width 13 % (10-15); White Blood Count 13.5 10^3/uL (3.5-10.8)
[2020-10-16] MEDS: Multivitamins/Minerals TAB PO SCH (08:51)
[2020-10-16] MEDS: cefTRIAXone 1 gm/50 mL NS BAG 1 GM/50 ML BAG IVPB SCH (17:00)
[2020-10-16] MEDS: Mometasone 220 MCG MDI INH SCH (19:46)
[2020-10-17] MEDS: Multivitamins/Minerals TAB PO SCH (08:25)
[2020-10-17] MEDS: cefTRIAXone 1 gm/50 mL NS BAG 1 GM/50 ML BAG IVPB SCH (16:48)
[2020-10-17] MEDS: Mometasone 220 MCG MDI INH SCH (19:55)
[2020-10-17] MEDS ORDERED: Al Hydrox/Mg Hydrox/Simet LIQ 30 ML UDC PO PRN (23:46)
[2020-10-18 05:08] LABS: Hematocrit 45 % (42-52); Mean Corpuscular HGB Conc 33 g/dL (31-36); Mean Corpuscular Hemoglobin 34 pg (27-31); Mean Corpuscular Volume 102 fL (80-94); Mean Platelet Volume 7.6 fL (7.4-10.4); Platelet Count 403 10^3/uL (150-450); Red Blood Count 4.42 10^6 /uL (4.18-5.48); Red Cell Distribution Width 12 % (10-15)
[2020-10-18 05:47] LABS: Calcium 8.3 mg/dL (8.6-10.3); EGFR African American 99.8 (>60); EGFR Non-African American 82.5 (>60); Potassium 4.1 mmol/L (3.5-5.0)
[2020-10-18 05:50] LABS: ABS Basophils 0.1 10^3/ul (0-0.2); ABS Eosinophils 0.2 10^3/ul (0-0.6); ABS Lymphocytes 1.1 10^3/ul (1.0-4.8); ABS Monocytes 1.1 10^3/ul (0-0.8); ABS Neutrophils 11.5 10^3/ul (1.5-7.7); Eosinophil % 1.1 %; Lymphocyte % 8.2 %; Nucleated Red Blood Cells % 0.1
[2020-10-18] MEDS: Multivitamins/Minerals TAB PO SCH (08:17)
[2020-10-18] MEDS: cefTRIAXone 1 gm/50 mL NS BAG 1 GM/50 ML BAG IVPB SCH (18:03)
[2020-10-18] MEDS: Mometasone 220 MCG MDI INH SCH (20:32)
[2020-10-19 06:36] LABS: ABS Eosinophils 0.1 10^3/ul (0-0.6); ABS Lymphocytes 1.2 10^3/ul (1.0-4.8); ABS Monocytes 1.3 10^3/ul (0-0.8); ABS Neutrophils 10.3 10^3/ul (1.5-7.7); Eosinophil % 1.1 %; Hematocrit 40 % (42-52); Hemoglobin 14.1 g/dL (14.0-18.0); Lymphocyte % 9.4 %; Mean Corpuscular HGB Conc 35 g/dL (31-36); Mean Corpuscular Hemoglobin 35 pg (27-31); Mean Corpuscular Volume 99 fL (80-94); Mean Platelet Volume 7.4 fL (7.4-10.4); Nucleated Red Blood Cells % 0.2; Platelet Count 459 10^3/uL (150-450); Red Blood Count 4.04 10^6 /uL (4.18-5.48); Red Cell Distribution Width 13 % (10-15)
[2020-10-19] MEDS: Multivitamins/Minerals TAB PO SCH (08:20)
[2020-10-19] MEDS ORDERED: cefTRIAXone 1 gm/50 mL NS BAG 1 GM/50 ML BAG IVPB ONE (12:00)
[2020-10-19 12:14] VITALS: BP 104/61
== END 2020-10-19 14:26 | DRG 872 ==
LOC: SSU 11:04 → ED 11:04 → SSU 15:52 → MEDTELE 10-11 10:16
PROVIDERS: ADMIT Internal Medicine; ATTEND Internal Medicine